=== PATIENT | male | born 1950 | race Caucasian/White ===

== ENCOUNTER → 2016-06-21 | Outpatient (CLI) | payer BC, MEDICARE ==
[2015-07-23 16:30] VITALS: BP 150/72
[~2016-06-21] MED LIST: ASPI81TA2 PO; CLIN300C86 PO; LISI10TA2 PO; METF500T9 PO; TAMS0.4C2 PO; TRAM-29 PO
--- NOTE | 2016-06-23 10:36 | CARD ---
APPROVED REPORT EXAM: Two-dimensional and M-mode echocardiogram with Doppler and color Doppler. Other Information Quality : Technically LimitedHR: 58bpm Rhythm : Bradycardia INDICATION Cardiac Disease: CAD 2D DIMENSIONS RVDd3.4 (2.9-3.5cm)Left Atrium(2D)3.5 (1.6-4.0cm) IVSd1.0 (0.7-1.1cm)Aortic Root(2D)2.3 (2.0-3.7cm) LVDd3.8 (3.9-5.9cm)LVOT Diameter2.0 (1.8-2.4cm) PWd1.0 (0.7-1.1cm)LVDs2.7 (2.5-4.0cm) FS (%) 28.2 %SV34.2 ml LVEF(%)55.2 (>50%) Aortic Valve AoV Peak Etienne.211.9cm/sAoV VTI46.2cm AO Peak GR.18.0mmHgLVOT Peak Etienne.105.3cm/s LVOT VTI 25.46cmAO Mean GR.10mmHg CHARLEY (VMAX)1.21mw3HDA (VTI)1.79cm2 AI P 1/2 Fcgx553gb Mitral Valve MV E Vuiwfjtg066.3cm/sMV DECEL BBPN129vn MV A Enyzbuug12.8cm/sMV E Mean Gr.2mmHg MV XSG68gqV/A Ratio1.4 MVA (PHT)3.68cm2 TDI E/Lateral E'14.0E/Medial E'16.9 Tricuspid Valve TR P. Fsatwfxb883ii/sTR Peak Gr.20mmHg LEFT VENTRICLE The left ventricle is normal size. There is normal left ventricular wall thickness. Left ventricle sy stolic function is normal. The Ejection Fraction is 50-55%. There is normal LV segmental wall motion. Septal motion consistent with prior CABG The left ventricular diastolic function and filling is norm al for age. There is no ventricular septal defect visualized. RIGHT VENTRICLE The right ventricle is normal size. The right ventricular systolic function is normal. ATRIA The left atrium size is normal. The right atrium size is normal. The interatrial septum is intact wit h no evidence for an atrial septal defect or patent foramen ovale as noted on 2-D or Doppler imaging. AORTIC VALVE The aortic valve is not well visualized. Suspect bioprosthetic aortic valve. Doppler and Color Flow r evealed mild aortic regurgitation. There is no significant aortic valvular stenosis. MITRAL VALVE The mitral valve leaflets are mildly calcified but opens well. There is no evidence of mitral valve p rolapse. There is no mitral valve stenosis. Doppler and Color Flow revealed no mitral valve regurgita tion noted. TRICUSPID VALVE The tricuspid valve is normal in structure. Doppler and Color Flow revealed trace tricuspid regurgita tion. There is no tricuspid valve stenosis. PULMONIC VALVE The pulmonic valve is not well visualized. Doppler and color-flow analysis was not performed. GREAT VESSELS The aortic root is not well visualized. Normal pulmonary venous flow (Doppler). The IVC was not visua lized. PERICARDIAL EFFUSION There is no pleural effusion. There is no evidence of significant pericardial effusion. Critical Notification Critical Value: No <Conclusion> Left ventricle systolic function is normal. The Ejection Fraction is 50-55%. There is normal LV segmental wall motion. Septal motion consistent with prior CABG The aortic valve is not well visualized. Suspect bioprosthetic aortic valve. Doppler and Color Flow revealed mild aortic regurgitation.
== END | disposition home or self-care (01) ==
LOC: ECHO 08:39
PROVIDERS: ATTEND Internal Medicine Cardiovascular Disease
DX: I25.10 Atherosclerotic heart disease of native coronary artery without angina pectoris (principal)
CPT/HCPCS: 93306

== ENCOUNTER → 2018-09-23 | Outpatient (CLI) | payer MEDICARE ==
[2015-07-23 16:30] VITALS: BP 150/72
[~2018-09-23] MED LIST changes: +ASPI-630 PO; -ASPI81TA2 PO; +CLIN300C8 PO; -CLIN300C86 PO; -TRAM-29 PO; +TRAM-48 PO
[2018-09-23] MEDS: PERFLUTREN PROTEIN-A MICROSPHR 0.22 MG/ML 3 ML VIAL. IV PRN ×2 (11:57→11:58)
--- NOTE | 2018-09-23 13:35 | CARD ---
MR#: [id number] Date of Study: 09/23/2018 Ordering Physician: JAJA AVILEZ, Referring Physician: JAJA AVILEZ, Tech: Ai Virk RDCS APPROVED REPORT EXAM: Two-dimensional and M-mode echocardiogram with Doppler and color Doppler. Other Information Quality : Technically Limited Technically limited study due to body habitus. INDICATION Aortic Valve Disease Dyspnea on Exertion Echo Enhancing Agent Agent/Amount Used: Optison 2mL Surgery/Intervention Status/Post Aortic Valve Replacement: Bioprosthetic Type: Porcine 2D DIMENSIONS RVDd2.8 (2.9-3.5cm)Left Atrium(2D)4.2 (1.6-4.0cm) IVSd1.3 (0.7-1.1cm)Aortic Root(2D)2.7 (2.0-3.7cm) LVDd4.8 (3.9-5.9cm)LVOT Diameter2.2 (1.8-2.4cm) PWd1.0 (0.7-1.1cm)LVDs4.0 (2.5-4.0cm) FS (%) 16.7 %SV38.2 ml LVEF(%)35.0 (>50%) Aortic Valve AoV Peak Etienne.212.7cm/sAoV VTI47.7cm AO Peak GR.18.1mmHgLVOT Peak Etienne.165.7cm/s LVOT VTI 35.61cmAO Mean GR.11mmHg CHARLEY (VMAX)2.77nn6AES (VTI)2.81cm2 AI P 1/2 Tbjp084ct Mitral Valve MV E Shfwhohe330.0cm/sMV DECEL DSCV816kv MV A Nmbwjntk933.3cm/sMV FVJ75ph E/A Ratio1.3MVA (PHT)3.98cm2 TDI E/Lateral E'27.5E/Medial E'18.2 Tricuspid Valve TR P. Udfzianz359tq/sRAP FQUQOYAL1inNg TR Peak Gr.99ckNmVIDY96jhFs Pulmonary Vein S1 Nbsakzjw40.5cm/sD2 Epxqxmvb52.5cm/s LEFT VENTRICLE The left ventricle is normal size. There is mild asymmetric septal hypertrophy. The left ventricular systolic function is normal and the ejection fraction is within normal range. The Ejection Fraction i s 55%. There is grossly normal wall motion. Technically very difficult images despite contrast use. T ransmitral Doppler flow pattern is Grade II-pseudonormal filling dynamics. RIGHT VENTRICLE Not well visualized. ATRIA The left atrium is mildly dilated. The right atrium is not well visualized. The interatrial septum is intact with no evidence for an atrial septal defect or patent foramen ovale as noted on 2-D or Doppl er imaging. AORTIC VALVE The aortic valve is not well visualized. Doppler and Color Flow revealed mild aortic regurgitation. C alculated aortic valve area is 2.8 cm2 with maximum pressure gradient of 18 mmHg and mean pressure gr adient of 11 mmHg. There is a bioprosthetic aortic valve prosthesis. MITRAL VALVE The mitral valve is calcified but opens well. Mitral annular calcification is mild. There is no evide nce of mitral valve prolapse. There is no mitral valve stenosis. Doppler and Color Flow revealed no m itral valve regurgitation noted. TRICUSPID VALVE Doppler and Color Flow revealed trace tricuspid regurgitation. The PA pressure was estimated at 28 mm Hg. There is no tricuspid valve stenosis. PULMONIC VALVE The pulmonic valve is not well visualized. Doppler and Color Flow revealed no pulmonic valvular regur gitation. There is no pulmonic valvular stenosis. GREAT VESSELS The aortic root is normal in size. The ascending aorta is not well seen. The IVC was not visualized. PERICARDIAL EFFUSION There is no evidence of significant pericardial effusion. Critical Notification Critical Value: No <Conclusion> The left ventricular systolic function is normal and the ejection fraction is within normal range. Th e Ejection Fraction is 55%. There is grossly normal wall motion. Technically very difficult images despite contrast use. Calculated aortic valve area is 2.8 cm2 with maximum pressure gradient of 18 mmHg and mean pressure g radient of 11 mmHg. Signed by : Jaja Avilez, Electronically Approved : 09/23/2018 13:34:30
== END | disposition home or self-care (01) ==
LOC: ECHO 10:50
PROVIDERS: ATTEND Internal Medicine Cardiovascular Disease
DX: I08.0 Rheumatic disorders of both mitral and aortic valves (principal)
CPT/HCPCS: C8929; Q9956

== ENCOUNTER 2018-10-01 08:13 | Outpatient (CLI) | payer MEDICARE ==
[~2018-10-01] VITALS: Ht 167.6 cm; Wt 111.1 kg
[2018-10-01] VITALS (14 sets, daily range): BP systolic 108–156; BP diastolic 55–70
[2018-10-01 08:46] LABS: HEMATOCRIT 41.7 % (39.0-53.0); HEMOGLOBIN 13.7 g/dL (13.0-17.5); RED BLOOD COUNT 4.92 x10^6/uL (4.30-5.70); RED CELL DISTRIBUTION WIDTH 14.7 % (11.5-14.5); WHITE BLOOD COUNT 7.4 x10^3/uL (4.0-11.0)
[2018-10-01] MEDS ORDERED: METO-239 PO (08:50)
[2018-10-01] MEDS ORDERED: LOSA100T14 PO (08:50)
[2018-10-01] MEDS ORDERED: GLIP2.5T4 PO (08:50)
[2018-10-01] MEDS ORDERED: ATOR20TA58 PO (08:50)
[2018-10-01] MEDS ORDERED: AMLO10TA8 PO (08:50)
[2018-10-01 08:51] LABS: GFR 74.1; POTASSIUM 4.3 mmol/L (3.5-5.1)
[2018-10-01 08:59] LABS: PROTHROMBIN TIME PATIENT 14.1 SEC (11.7-14.0)
[2018-10-01] MEDS ORDERED: IODIXANOL 320 MG/ML 100 ML VIAL. ONE (10:30)
[2018-10-01] MEDS ORDERED: MIDAZOLAM HCL/PF 2 MG/2 ML VIAL. ONE (10:33)
[2018-10-01] MEDS ORDERED: HEPARIN for IV BOLUS 10,000 UNIT/10 ML VIAL. ONE (10:33)
[2018-10-01] MEDS ORDERED: fentaNYL PF VIAL 100 MCG/2 ML VIAL ONE (10:33)
--- NOTE | 2018-10-01 10:40 | PDOC ---
MODERATE SEDATION ASSESSMENT RISKS/ALTERNATIVES Risks/Alternatives Risks and alternatives of this type of sedation and procedure discussed with: RISK/ALTERNATIVES: Patient H & P ON CHART H & P H & P on chart and reviewed for co-morbid conditions and appropriate labs. H&P ON CHART: Yes STATUS PREG STATUS ASSESSED: N/A MEDS/ALLERGIES REVIEWED Meds/Allergies Reviewed Medications and Allergies including time and route of recently administered narcotics and sedatives. MEDS/ALLERGIES REVIEWED: Yes ASA RATING ASA RATING: II AIRWAY ASSESSMENT Airway Assessment Airway patency, oral function limitations, presence of caps, crowns, dentures, partials, and ability to extend neck assessed. AIRWAY ASSESSMENT: Yes MALLAMPATI SCORE MALLAMPATI SCORE: II PRE-SEDATION ASSESSMENT PRE-SEDATION ASSESSMENT: Yes JAJA AVILEZ MD Oct 01, 2018 10:40
[2018-10-01] MEDS ORDERED: LIDOCAINE 1% Multi-Dose 20 ML VIAL. ONE (10:41)
[2018-10-01] MEDS ORDERED: LIDOCAINE 1% Multi-Dose 20 ML VIAL. INJ ONE (11:15)
[2018-10-01] MEDS ORDERED: MIDAZOLAM HCL/PF 2 MG/2 ML VIAL. IV ONE (11:15)
[2018-10-01] MEDS ORDERED: fentaNYL PF VIAL 100 MCG/2 ML VIAL IV ONE (11:15)
[2018-10-01] MEDS ORDERED: IODIXANOL 320 MG/ML 100 ML VIAL. IART ONE (11:15)
--- NOTE | 2018-10-01 11:34 | PDOC1 ---
History and Physical Visit Information Date of Admission: 10/01/2018 Source: Patient History of Present Illness History of Present Illness Pleasant 67 y.o man with pmhx as noted below presents with dyspnea. He has been having worsening exertional dyspnea and chest pressure similar to his presentation prior to his cabg and avr. Denies any syncope , orthopnea, PND or lower extremity edema. He reports some chest pressure which is relieved with rest. Cardiac Risk Factors Comments 1. Two-vessel coronary artery disease status post two-vessel CABG 2. Aortic stenosis status post aortic valve replacement 3. Morbid obesity 4. Distant anemia 5. Hypertension Current Medications Current Medications Current Medications Fentanyl Citrate (Fentanyl 2ml Vial) 100 mcg 1X ONCE IV Last administered on 10/01/18at 11:15; Start 10/01/18 at 11:15; Stop 10/01/18 at 11:18; Status DC Fentanyl Citrate (Fentanyl 2ml Vial) 100 mcg STK-MED ONCE .ROUTE ; Start 10/01/18 at 10:33; Stop 10/01/18 at 10:34; Status DC Heparin Sodium (Porcine) (Heparin Sodium) 10,000 unit STK-MED ONCE .ROUTE ; Start 10/01/18 at 10:33; Stop 10/01/18 at 10:34; Status DC Heparin Sodium/ Sodium Chloride 1,000 ml @ As Directed STK-MED ONCE .ROUTE ; Start 10/01/18 at 10:40; Stop 10/01/18 at 10:41; Status DC Heparin Sodium/ Sodium Chloride (HEPARIN for ARTERIAL LINE FLUSH) 1,000 unit 1X ONCE IART Last administered on 10/01/18at 11:15; Start 10/01/18 at 11:15; Stop 10/01/18 at 11:18; Status DC Iodixanol (Visipaque 320) 100 ml 1X ONCE IART Last administered on 10/01/18at 11:15; Start 10/01/18 at 11:15; Stop 10/01/18 at 11:18; Status DC Iodixanol (Visipaque 320) 100 ml STK-MED ONCE .ROUTE ; Start 10/01/18 at 10:30; Stop 10/01/18 at 10:31; Status DC Lidocaine HCl (Lidocaine 1% 20ml Vial) 20 ml 1X ONCE INJ Last administered on 10/01/18at 11:15; Start 6/25/19 at 11:15; Stop 10/01/18 at 11:18; Status DC Lidocaine HCl (Lidocaine 1% 20ml Vial) 20 ml STK-MED ONCE .ROUTE ; Start 10/01/18 at 10:41; Stop 10/01/18 at 10:42; Status DC Midazolam HCl (Versed) 2 mg 1X ONCE IV Last administered on 10/01/18at 11:15; Start 10/01/18 at 11:15; Stop 10/01/18 at 11:18; Status DC Midazolam HCl (Versed) 2 mg STK-MED ONCE .ROUTE ; Start 10/01/18 at 10:33; Stop 10/01/18 at 10:34; Status DC Allergies Allergies Allergies Coded Allergies Type Severity Reaction Last Updated Verified Penicillins Allergy Intermediate 06/08/15 Yes codeine Allergy Intermediate 06/08/15 Yes poliomyelitis vaccine,killed Allergy Intermediate 06/08/15 Yes Social History Comments No alcohol, tobacco or illicit drug use. He is retired. Family History Comments Noncontributory ROS Review of System Negative for 10 out of 14 systems reviewed unless otherwise mentioned above in history of present illness Physical Exam Comments The patient appeared well nourished and normally developed. Head exam is unremarkable. No scleral icterus or corneal arcus noted. Neck is without jugular venous distension, thyromegaly, or carotid bruits. Carotid upstrokes are brisk bilaterally. Lungs are clear to auscultation and percussion. Cardiac exam reveals the PMI to be normally sized and situated. Rhythm is regular. First and second heart sounds normal. No murmurs, rubs or gallops. Abdominal exam reveals normal bowel sounds, no masses, no organomegaly and no aortic enlargement. Extremities are nonedematous and both femoral and pedal pulses are normal. Msk: No traumua Neuro: No focal deficits Vitals VITALS Vital Signs Date Time Temp Pulse Resp B/P (MAP) Pulse Ox O2 Delivery O2 Flow Rate FiO2 10/01/18 11:15 18 10/01/18 09:27 97.8 59 122/66 (84) 92 Room Air 97.8 Labs Labs Laboratory Tests Test 10/01/18 08:37 White Blood Count 7.4 x10^3/uL (4.0-11.0) Red Blood Count 4.92 x10^6/uL (4.30-5.70) Hemoglobin 13.7 g/dL (13.0-17.5) Hematocrit 41.7 % (39.0-53.0) Mean Corpuscular Volume 85 fL (79-100) Mean Corpuscular Hemoglobin 28 pg (25-35) Mean Corpuscular Hemoglobin Concent 33 g/dL (31-37) Red Cell Distribution Width 14.7 % (11.5-14.5) Platelet Count 211 x10^3/uL (140-400) Prothrombin Time 14.1 SEC (11.7-14.0) Prothromb Time International Ratio 1.1 (0.8-1.1) Sodium Level 140 mmol/L (136-145) Potassium Level 4.3 mmol/L (3.5-5.1) Chloride Level 104 mmol/L (98-107) Carbon Dioxide Level 28 mmol/L (21-32) Anion Gap 8 (6-14) Blood Urea Nitrogen 22 mg/dL (8-26) Creatinine 1.0 mg/dL (0.7-1.3) Estimated GFR (Cockcroft-Gault) 74.1 Glucose Level 122 mg/dL (70-99) Calcium Level 9.0 mg/dL (8.5-10.1) Laboratory Tests Test 10/01/18 08:37 White Blood Count 7.4 x10^3/uL (4.0-11.0) Red Blood Count 4.92 x10^6/uL (4.30-5.70) Hemoglobin 13.7 g/dL (13.0-17.5) Hematocrit 41.7 % (39.0-53.0) Mean Corpuscular Volume 85 fL (79-100) Mean Corpuscular Hemoglobin 28 pg (25-35) Mean Corpuscular Hemoglobin Concent 33 g/dL (31-37) Red Cell Distribution Width 14.7 % (11.5-14.5) Platelet Count 211 x10^3/uL (140-400) Prothrombin Time 14.1 SEC (11.7-14.0) Prothromb Time International Ratio 1.1 (0.8-1.1) Sodium Level 140 mmol/L (136-145) Potassium Level 4.3 mmol/L (3.5-5.1) Chloride Level 104 mmol/L (98-107) Carbon Dioxide Level 28 mmol/L (21-32) Anion Gap 8 (6-14) Blood Urea Nitrogen 22 mg/dL (8-26) Creatinine 1.0 mg/dL (0.7-1.3) Estimated GFR (Cockcroft-Gault) 74.1 Glucose Level 122 mg/dL (70-99) Calcium Level 9.0 mg/dL (8.5-10.1) ECG EKG: NSR VTE Prophylaxis Ordered VTE Prophylaxis Devices: Yes VTE Pharmacological Prophylaxi: Yes Assessment/Plan Assessment/Plan 1. Exertional dyspnea and a 67-year-old man with multiple medical problems as noted above plan for diagnostic right and left heart catheterization in light of his echo and stress test findings JAJA AVILEZ MD Oct 01, 2018 11:34
[2018-10-01] MEDS ORDERED: 0.9 % SODIUM CHLORIDE 10 ML DISP.SYRIN. IV PRN (11:45)
[2018-10-01] MEDS ORDERED: NITROGLYCERIN SUBLINGUAL 0.4 MG BOTTLE OF 25. SL PRN (11:45)
--- NOTE | 2018-10-01 11:59 | CARD ---
MR#: [id number] Date of Study: 10/01/2018 Ordering Physician: JAJA ROMEO, Referring Physician: JAJA ROMEO, Tech: RT Isabella (R) APPROVED REPORT Technologist: Deonte Mast RT (R) Nurse: Mirna Hubbard RN Procedure(s) performed: Sedation Time: 54 Minutes Dose: 90 Gycm2 Fluoro Time: 7.3 Contrast: 88 mL RHC, LHC, Coronary angiography HISTORY The patient is a 67 year-old male with a history of : coronary artery disease, hypertension, dyslipid emia. INDICATION The indication(s) include : unstable angina , dyspnea, valvular heart disease. [facility] Clinical Frailty Scale [facility] Clinical Frailty Scale: Moderately Frail Heart Failure Heart Failure: Yes If Yes, Newly Diagnosed: No If Yes, HF Type: Systolic If Yes, NYHA Class: Class II CASE TECHNIQUE During this case, Fluoroscopy and low osmolar contrast were used for imaging. PROCEDURE NARRATIVE The patient was brought electively to the cardiac catheterization lab. A timeout was performed confi rming the patient's name, date of , procedure, and site of procedure. All necessary personnel w ere wearing the appropriate protective equipment and radiation monitor devices. After explaining the risks and benefits of the procedure and alternatives, informed consent was obtained. (See nursing no rebeka for medications administered). The right groin was sterilely prepped and draped in the usual fas hion. The right groin was infiltrated with 20 mL of 2% lidocaine for subcutaneous anesthesia. A 6 F sheath was inserted into the right femoral artery without difficulty via the modified seldinger techn ique with an 18G needle and a J-tipped guidewire. Next, an 8Fr sheath was inserted in the right commo n femoral vein in similar fashion without difficulty. A PA catheter was then advanced through the right heart chambers, pressures and saturations were obta ined. Subsequently, right and left coronary angiography was performed using standard JR4 and JL4 diag nostic catheters. Left ventricular end diastolic pressure was obtained with a pigtail catheter and p ullback was performed. Bypass angiography was performed with a JR4 catheter. HEMODYNAMICS: LVEDP 20 mm Hg AO: 110/79 *No gradient on LV to aortic pullback. PCWP: 26/28/22 mm Hg PA: 51/17/33 RV: 46/15/22 RA: 20/23/16 mm Hg Everardo: 5.5 L/min Tco: 6.2 L/min PA saturation: 69% FA saturation: 92% LEFT VENTRICULOGRAM: Deferred due to known normal EF by echo. CORONARY ANGIOGRAPHY: LM is a large caliber vessel with normal angiographic appearance. LAD is a large caliber vessel with a mid 70% stenosis. The mid to distal vessel is seen to fill anteg rade and via competitive flow from a LUO graft. D1/D2 are small caliber vessels with normal angiographic apeparance. LCx is a moderate caliber non-dominant vessel with a mid 50% stenosis. LPL1 is a moderate caliber vessel with normal angiographic appearance. RCA is a large caliber dominant vessel with a long proximal to distal 60% stenosis and negative remod eling. RPDA is a moderate caliber vessel with normal angiographic appearance. BYPASS ANGIOGRAPHY: LUO to LAD - Not well engaged due to subclavian tortuosity but no evidence of significant disease on limited imaging. SVG to RCA - Widely patent. Conclusion 1. Acute on chronic diastolic heart failure with biventricular pressure overload. 2. Moderate pulmonary hypertension. 3. Three vessel coronary disease. 4. 2/2 grafts patent. Recommendations Aggressive Medical Therapy Signed by : Jaja Romeo, Electronically Approved : 10/01/2018 11:58:43
--- NOTE | 2018-10-01 14:44 | NUR ---
Right groin site checked and oozing noted from venous site. Old dressing removed and arterial site also had fresh blood. Site cleaned and new dressings applied. Patient complains of neck discomfort but explained that we need him to remain flat because his site bled, will continue to monitor.
[2018-10-01] MEDS ORDERED: FURO-68 PO (15:39)
--- NOTE | 2018-10-01 16:19 | NUR ---
Discharge Note: ERICA BOWLING Discharge instructions and discharge home medications reviewed with Patient and a copy given. All questions have been answered and understanding verbalized. The following instructions and handouts were given: groin site care and moderate sedation Discontinued lines and drains: Peripheral IV intact. Patient discharged to Home or Self Care withFamily Membervia Wheelchair
== END 2018-10-01 16:15 | disposition home or self-care (01) ==
LOC: CCL 08:13
PROVIDERS: ATTEND Internal Medicine Cardiovascular Disease
DX: I25.110 Atherosclerotic heart disease of native coronary artery with unstable angina pectoris (principal); I11.0 Hypertensive heart disease with heart failure; I50.33 Acute on chronic diastolic (congestive) heart failure; Z79.82 Long term (current) use of aspirin; D64.9 Anemia, unspecified; Z95.1 Presence of aortocoronary bypass graft; Z88.5 Allergy status to narcotic agent; Z88.0 Allergy status to penicillin; Z88.8 Allergy status to other drugs, medicaments and biological substances
CPT/HCPCS: 36415; 80048; 85027; 85610; 93453; 99152; 99153; C1760; C1769; C1773; C1892; J1644; J2250; J3010; Q9967; G0269; C1771

== ENCOUNTER → 2019-02-28 | Outpatient (CLI) | payer MEDICARE ==
[2018-10-01 15:30] VITALS: BP 130/66
[~2019-02-28] MED LIST changes: +AMLO10TA8 PO; +ATOR20TA58 PO; +FURO-68 PO; +GLIP2.5T4 PO; +LOSA100T14 PO; +METF500T11 PO; -METF500T9 PO; +METO-239 PO
--- NOTE | 2019-02-28 10:53 | KCIC ---
EXAMINATION: Magnetic resonance imaging (MRI) of the lumbar spine without contrast 02/28/2019 9:30 AM HISTORY: Low back pain. TECHNIQUE: Multiplanar multi-weighted MRI of the lumbar spine was performed without intravenous contrast using the standard lumbar spine protocol. Contrast information: None administered. COMPARISON: None available. FINDINGS: The alignment of the lumbar spine is normal. There is congenital narrowing of the spinal canal secondary to shortened pedicles. Large anterior marginal osteophytes are identified at L1-L2 and L2-L3. Vertebral bodies demonstrate normal signal intensity on all sequences. There are no compression fractures. The conus medullaris terminates at the level of L1. The distal spinal cord signal intensity is normal. Mild disc height loss is noted at L1-L2 and L2-L3 with disc desiccation noted at all levels of the lumbar spine. Limited views of the abdomen and pelvis show no soft tissue abnormality. The aorta is normal. T12-L1: There is mild disc bulge with left central disc protrusion. Mild facet arthropathy. No neuroforaminal stenosis. Mild spinal canal stenosis. L1-L2: There is a mild circumferential disc bulge with left foraminal disc protrusion. Moderate left and moderate facet arthropathy. Moderate to severe left neuroforaminal stenosis and mild left lateral recess stenosis. L2-L3: There is mild circumferential disc bulge with left foraminal disc protrusion. There is moderate left and mild right facet arthropathy. There is moderate left neuroforaminal stenosis. Mild spinal canal stenosis, exacerbated by congenital narrowing of the spinal canal. L3-L4: There is a mild to moderate disc bulge. There is moderate facet arthropathy ligamentum flavum infolding. Mild bilateral neuroforaminal stenosis. Mild spinal canal stenosis. L4-L5: There is a moderate disc bulge. There is moderate facet arthropathy with ligamentum flavum infolding. There is moderate right and moderate to severe left neuroforaminal stenosis. Mild to moderate spinal canal stenosis. L5-S1: There is mild circumferential disc bulge. Moderate to severe facet arthropathy. Moderate right neuroforaminal stenosis. No significant spinal canal stenosis. IMPRESSION: Mild degenerative changes of the lumbar spine as described in detail above. 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 Electronically signed by: Yolande Kaye MD (02/28/2019 10:49 AM) [facility]
== END | disposition home or self-care (01) ==
LOC: KCIC MRI 09:05
PROVIDERS: ATTEND Family Medicine
DX: M47.816 Spondylosis without myelopathy or radiculopathy, lumbar region (principal); M48.05 Spinal stenosis, thoracolumbar region; M51.24 Other intervertebral disc displacement, thoracic region; M51.27 Other intervertebral disc displacement, lumbosacral region; M46.84 Other specified inflammatory spondylopathies, thoracic region; M46.87 Other specified inflammatory spondylopathies, lumbosacral region; M25.78 Osteophyte, vertebrae; G89.29 Other chronic pain
CPT/HCPCS: 72148

== ENCOUNTER → 2019-08-11 | Outpatient (CLI) | payer MEDICARE ==
[2018-10-01 15:30] VITALS: BP 130/66
[~2019-08-11] MED LIST changes: +PERFLUTREN PROTEIN-A MICROSPHR 0.22 MG/ML 3 ML VIAL. IV ONE
[2019-08-11 12:57] LABS: CALCIUM 9.1 mg/dL (8.5-10.1); GFR 73.9; POTASSIUM 4.2 mmol/L (3.5-5.1)
--- NOTE | 2019-08-11 13:35 | CARD ---
MR#: [id number] Date of Study: 08/11/2019 Ordering Physician: JAJA AVILEZ, Referring Physician: JAJA AVILEZ, Tech: Ai Virk DIOR APPROVED REPORT EXAM: Two-dimensional and M-mode echocardiogram with Doppler and color Doppler. Other Information Quality : Good INDICATION Cardiac Disease: CAD Surgery/Intervention Status/Post Aortic Valve Replacement: Bioprosthetic Date: 2015 CABG: Date: 2015 2D DIMENSIONS RVDd2.6 (2.9-3.5cm)Left Atrium(2D)3.7 (1.6-4.0cm) IVSd0.9 (0.7-1.1cm)Aortic Root(2D)2.0 (2.0-3.7cm) LVDd5.3 (3.9-5.9cm)LVOT Diameter2.1 (1.8-2.4cm) PWd0.9 (0.7-1.1cm)LVDs3.5 (2.5-4.0cm) FS (%) 25.0 % Aortic Valve AoV Peak Etienne.245.0cm/sAoV VTI58.0cm AO Peak GR.24.0mmHgLVOT Peak Etienne.120.0cm/s LVOT VTI 30.00cmAO Mean GR.14mmHg CHARLEY (VTI)1.70cm2 Tricuspid Valve TR P. Xwdycuge498ri/sRAP PQSMKWIB0ytHb TR Peak Gr.91ewArULBO57rcNc LEFT VENTRICLE The left ventricle is normal size. There is normal left ventricular wall thickness. Left ventricle sy stolic function is normal. The Ejection Fraction is 50-55%. Septal motion consistent with post-operat mera state. RIGHT VENTRICLE The right ventricle is normal size. The right ventricular systolic function is normal. ATRIA The left atrium size is normal. The right atrium size is normal. The interatrial septum is intact wit h no evidence for an atrial septal defect or patent foramen ovale as noted on 2-D or Doppler imaging. AORTIC VALVE Doppler and Color Flow revealed mild aortic regurgitation. Calculated aortic valve area is 1.7 cm2 wi th maximum pressure gradient of 24 mmHg and mean pressure gradient of 14 mmHg. There is a bioprosthet ic (Bovine) aortic valve prosthesis. The prosthetic aortic valve is not well visualized. MITRAL VALVE The mitral valve is normal in structure and function. There is no evidence of mitral valve prolapse. There is no mitral valve stenosis. Doppler and Color Flow revealed trace mitral valve regurgitation. TRICUSPID VALVE The tricuspid valve is normal in structure and function. Doppler and Color Flow revealed trace tricus pid regurgitation. The PA pressure was estimated at 28 mmHg. There is no tricuspid valve stenosis. PULMONIC VALVE The pulmonic valve is not well visualized. Doppler and Color Flow revealed no pulmonic valvular regur gitation. There is no pulmonic valvular stenosis. GREAT VESSELS The aortic root is normal in size. The ascending aorta is not well seen. The IVC was not visualized. PERICARDIAL EFFUSION There is no evidence of significant pericardial effusion. Critical Notification Critical Value: No <Conclusion> The left ventricle is normal size. Left ventricle systolic function is normal. The Ejection Fraction is 50-55%. There is a bioprosthetic (Bovine) aortic valve prosthesis. The prosthetic aortic valve is not well visualized. Doppler and Color Flow revealed mild aortic regurgitation. Calculated aortic valve area is 1.7 cm2 with maximum pressure gradient of 24 mmHg and mean pressure g radient of 14 mmHg. Doppler and Color Flow revealed trace mitral valve regurgitation. Doppler and Color Flow revealed trace tricuspid regurgitation. The PA pressure was estimated at 28 mmHg. Signed by : Ty Galvin MD Electronically Approved : 08/11/2019 13:35:02
--- NOTE | 2019-08-12 10:03 | RAD ---
MR#: [id number] Date of Study: 08/11/2019 Ordering Physician: JAJA AVILEZ, Referring Physician: JAJA AVILEZ, Tech: Bright Amaral MBA, RDMS, RVT, RDCS, RTR APPROVED REPORT Patient Location : OUT-PATIENT Indications VENOUS INSUFFICIENCY Findings Grayscale images of the bilateral saphenofemoral junctions are grossly unremarkable. The right great saphenous vein measures 6 mm and does not reflux. The left great saphenous vein has been previously stripped for bypass surgery. Bilateral lesser saphenous veins did not show any evidence of reflux. Critical Notification Critical Value: No <Conclusion> 1. No significant lower extremity venous reflux. Signed by : Jaja Avilez, Electronically Approved : 08/12/2019 10:03:38
== END | disposition home or self-care (01) ==
LOC: ECHO 11:04
PROVIDERS: ATTEND Internal Medicine Cardiovascular Disease
DX: I35.1 Nonrheumatic aortic (valve) insufficiency (principal); I87.2 Venous insufficiency (chronic) (peripheral); I25.10 Atherosclerotic heart disease of native coronary artery without angina pectoris; Z95.2 Presence of prosthetic heart valve
CPT/HCPCS: 36415; 80048; 83880; 93306; 93970

== ENCOUNTER → 2019-11-03 | Outpatient (CLI) | payer MEDICARE ==
[2018-10-01 15:30] VITALS: BP 130/66
[~2019-11-03] MED LIST changes: +METF-658 PO; -METF500T11 PO; -PERFLUTREN PROTEIN-A MICROSPHR 0.22 MG/ML 3 ML VIAL. IV ONE
--- NOTE | 2019-11-03 17:08 | RAD ---
MR#: [id number] Date of Study: 11/03/2019 Ordering Physician: JAJA AVILEZ, Referring Physician: JAJA AVILEZ, Tech: Bright Amaral MBA, RDMS, RVT, RDCS, RTR APPROVED REPORT Patient Location: OUT-PATIENT Indications PAD VELOCITY AND DOPPLER WAVEFORM ANALYSIS RIGHT cm/secWaveformSeverity LEFT cm/secWaveform Severity dCFA 207.0TriphasicdCFA 179.0Triphasic Prof Fem Art. 159.0BiphasicProf Fem Art. 96.0Biphasic Fem Art Prox. 158.0TriphasicFem Art Prox. 167.0Triphasic Fem Art Mid. 171.0TriphasicFem Art Mid. 167.0Triphasic Fem Art Dist. 220.0TriphasicFem Art Dist. 188.0Triphasic Pop Art(Fossa) 149.0TriphasicPop Art(AK) 128.0Triphasic SUPERVISOR OF COMMUNICATIONS Prox. 141.0TriphasicPTA Prox. 113.0Triphasic SUPERVISOR OF COMMUNICATIONS Dist. 122.0TriphasicPTA Dist. 130.0Triphasic Per Art Mid. Per Art Mid. 130.0Triphasic LAURIE Prox. 115.0BiphasicATA Prox. 87.0Biphasic DPA 181MonophasicDPA 113Biphasic Findings Grayscale images of the bilateral lower extremity arterial vessels demonstrate mild to moderate diffu se atherosclerosis without any high-grade stenosis. Spectral waveforms and color Doppler are grossly within normal limits with mildly elevated velocities in the bilateral superficial femoral arteries in the mid to distal segment but no focal high-grade s tenosis is identified. There is two-vessel runoff on the right leg and three-vessel runoff on the le ft leg. Critical Notification Critical Value: No <Conclusion> 1. No significant lower extremity arterial disease noted. Signed by : Jaja Avilez, Electronically Approved : 11/03/2019 17:07:54
--- NOTE | 2019-11-03 17:17 | RAD ---
MR#: [id number] Date of Study: 11/03/2019 Ordering Physician: JAJA AVILEZ, Referring Physician: JAJA AVILEZ, Tech: Bright Amaral MBA, RDMS, RVT, RDCS, RTR APPROVED REPORT Patient Location: OUT-PATIENT Indications PAD Findings Right arm 120, right ankle PT 141, DP 135, index 1.2 Left arm 117, left ankle PT 138, DP 134, index 1.2 Critical Notification Critical Value: No <Conclusion> 1. Normal JENARO bilaterally Signed by : Jaja Avilez, Electronically Approved : 11/03/2019 17:17:01
--- NOTE | 2019-11-11 15:24 | RAD ---
MR#: [id number] Date of Study: 11/03/2019 Ordering Physician: JAJA AVILEZ, Referring Physician: JAJA AVILEZ, Tech: Bright Amaral MBA, RDMS, RVT, RDCS, RTR APPROVED REPORT Patient Location: OUT-PATIENT Laterality:Bilateral Indications PAD Doppler Spectral Velocity Analysis Right Left pCCA 90/112 cm/spCCA 112/17 cm/s mCCA 104/21 cm/smCCA 112/21 cm/s dCCA 112/13 cm/sdCCA 104/16 cm/s Bulb 131/16 cm/sBulb 108/19 cm/s ECA 241/ cm/sECA 341/ cm/s pICA 133/24 cm/spICA 267/54 cm/s Margo 125/25 cm/smICA 212/49 cm/s dICA 110/28 cm/sdICA 184/37 cm/s Vert. 39/ cm/sVert. 74/ cm/s Subcl. 108/ cm/sSubcl. 102/ cm/s ICA/CCA 1.19ICA/CCA 2.38 Findings Gee scale images demonstrate moderate bilateral plaque, mostly at the carotid bulbs. Based on spectral waveforms, there is moderate (50-69%) stenosis on the MUMTAZ, > 70% stenosis in the r ight ECA and normal ICA/CCA ratios. On the left side, there is a > 70% stenosis involving the ICA and ECA. Right vertebral artery not well visualized. Normal antegrade left vertebral velocities. Normal bilateral subclavian velocities. Critical Notification Critical Value: No <Conclusion> 1. Moderate to severe bilateral ICA disease. Signed by : Jaja Avilez, Electronically Approved : 11/11/2019 15:24:36
== END | disposition home or self-care (01) ==
LOC: US 11:29
PROVIDERS: ATTEND Internal Medicine Cardiovascular Disease
DX: I65.23 Occlusion and stenosis of bilateral carotid arteries (principal); I70.203 Unspecified atherosclerosis of native arteries of extremities, bilateral legs
CPT/HCPCS: 93880; 93922; 93925

== ENCOUNTER → 2020-02-17 | Outpatient (CLI) | payer MEDICARE ==
[2018-10-01 15:30] VITALS: BP 130/66
[~2020-02-17] MED LIST changes: +AMLO-187 PO; -AMLO10TA8 PO; +TRAM50TA PO
== END ==
LOC: LAB 09:49
PROVIDERS: ATTEND Surgery Vascular Surgery
DX: Z01.812 Encounter for preprocedural laboratory examination (principal); I65.29 Occlusion and stenosis of unspecified carotid artery; Z20.828 Contact with and (suspected) exposure to other viral communicable diseases
CPT/HCPCS: U0003

== ENCOUNTER → 2020-07-14 | Outpatient (CLI) | payer MEDICARE ==
[2020-05-24 14:50] VITALS: BP 140/64
[~2020-07-14] MED LIST changes: -CLIN300C8 PO; +CLIN300C9 PO; +HYDR-2761 PO; +LISI10TA16 PO; -LISI10TA2 PO; +PERFLUTREN PROTEIN-A MICROSPHR 0.22 MG/ML 3 ML VIAL. IV ONE
--- NOTE | 2020-07-15 09:29 | CARD ---
MR#: [id number] Date of Study: 07/14/2020 Ordering Physician: JAJA AVILEZ, Referring Physician: JAJA AVILEZ, Tech: Annmarie David, [facility] APPROVED REPORT EXAM: Two-dimensional and M-mode echocardiogram with Doppler and color Doppler. Other Information Quality : FairHR: 71bpm Technically limited study due to body habitus. INDICATION Cardiac Disease: CAD Surgery/Intervention Status/Post Aortic Valve Replacement: CABG: Date: 2015 RISK FACTORS Hypertension 2D DIMENSIONS Left Atrium(2D)3.7 (1.6-4.0cm)IVSd1.0 (0.7-1.1cm) Aortic Root(2D)2.0 (2.0-3.7cm)LVDd5.6 (3.9-5.9cm) LVOT Diameter1.9 (1.8-2.4cm)PWd1.0 (0.7-1.1cm) LVDs3.6 (2.5-4.0cm)FS (%) 35.3 % SV97.0 ml Aortic Valve AoV Peak Etienne.254.4cm/sAoV VTI54.4cm AO Peak GR.25.9mmHgLVOT Peak Etienne.180.1cm/s LVOT VTI 45.81cmAO Mean GR.14mmHg CHARLEY (VMAX)1.07tj1IZF (VTI)2.47cm2 AI P 1/2 Dikt049qh Mitral Valve MV E Ibnyfgfg602.4cm/sMV DECEL XELG608gg MV A Lfqkrgbw31.5cm/sMV UJW30js E/A Ratio1.3MVA (PHT)3.81cm2 TDI E/Lateral E'12.0E/Medial E'16.2 Pulmonary Valve PV Peak Adjhlctn652.3cm/sPV Peak Grad.5mmHg Tricuspid Valve TR P. Diesvvlv599za/sRAP WNKXORDA5jcKn TR Peak Gr.09fiWqYGFC31ggEa Pulmonary Vein S1 Zjjrjlmu36.0cm/sD2 Fitfwlrv88.0cm/s PVa [id number] LEFT VENTRICLE The left ventricle is normal size. There is normal left ventricular wall thickness. The left ventricu lar systolic function is normal and the ejection fraction is within normal range. The Ejection Fracti on is 50-55%. Septal motion consistent with post-operative state. Transmitral Doppler flow pattern is Grade II-pseudonormal filling dynamics. RIGHT VENTRICLE The right ventricle is mildly dilated. There is normal right ventricular wall thickness. The right ve ntricular systolic function is normal. ATRIA The left atrium size is normal. The right atrium is mildly dilated. The interatrial septum is intact with no evidence for an atrial septal defect or patent foramen ovale as noted on 2-D or Doppler imagi ng. AORTIC VALVE Doppler and Color Flow revealed trace aortic regurgitation. There is no significant aortic valvular s tenosis. Calculated aortic valve area is 2.46 cm2 with maximum pressure gradient of 38 mmHg and mean pressure gradient of 19 mmHg. The prosthetic aortic valve appears normal. MITRAL VALVE The mitral valve is normal in structure and function. There is no evidence of mitral valve prolapse. There is no mitral valve stenosis. Doppler and Color-flow revealed trace mitral regurgitation. TRICUSPID VALVE The tricuspid valve is not well visualized. Doppler and Color Flow revealed trace tricuspid regurgita tion with an estimated PAP of 30 mmHg. There is no tricuspid valve stenosis. PULMONIC VALVE The pulmonic valve is not well visualized. Doppler and Color Flow revealed no pulmonic valvular regur gitation. GREAT VESSELS The aortic root is normal in size. The IVC was not visualized. PERICARDIAL EFFUSION There is no evidence of significant pericardial effusion. Critical Notification Critical Value: No <Conclusion> The left ventricle is normal size. The left ventricular systolic function is normal and the ejection fraction is within normal range. The Ejection Fraction is 50-55%. Septal motion consistent with post-operative state. Doppler and Color Flow revealed trace aortic regurgitation. There is no significant aortic valvular stenosis. Doppler and Color-flow revealed trace mitral regurgitation. Doppler and Color Flow revealed trace tricuspid regurgitation with an estimated PAP of 30 mmHg. Signed by : Ty Galvin MD Electronically Approved : 07/15/2020 09:29:03
== END ==
LOC: CARD 12:44
PROVIDERS: ATTEND Internal Medicine Cardiovascular Disease
DX: I25.10 Atherosclerotic heart disease of native coronary artery without angina pectoris (principal); Z95.2 Presence of prosthetic heart valve
CPT/HCPCS: C8929; Q9956

== ENCOUNTER 2020-09-15 12:35 | Inpatient (IN) | payer MEDICARE ==
[~2020-09-15] VITALS: Ht 167.6 cm; Wt 98.8 kg
[~2020-09-15 12:35] MED LIST changes: -PERFLUTREN PROTEIN-A MICROSPHR 0.22 MG/ML 3 ML VIAL. IV ONE
--- NOTE | 2020-09-15 12:52 | PHYS DOC ---
Past Medical History Past Medical History: No Pertinent History, High Cholesterol, Hypertension Past Surgical History: Coronary Bypass Surgery, Other Additional Past Surgical Histo: AORTIC VALVE REPLACEMENT,KIDNEY TRANSPLANT X 2 Smoking Status: Never Smoker Alcohol Use: None Drug Use: None General Adult EDM: Chief Complaint: HIP PAIN HPI: HPI: 69-year-old male who fell yesterday twice. He primarily complains of right hip pain. He has not been able to place weight on it since his second fall. He did hit his head. He denies being on blood thinners. He did not pass out. He also has neck pain associated with his head injury. The pain is a sharp shooting moderate pain without alleviating factors. He denies any chest belly or thoracic or lumbar back pain. Review of systems is negative for loss of conscious. Positive for mild headache. Negative for focal neurologic deficits. Negative for numbness weakness or tingling in his right lower extremity. All other review of systems is negative. Heart Score: C/O Chest Pain: No Risk Factors: Risk Factors: DM, Current or recent (<one month) smoker, HTN, HLP, family history of CAD, obesity. Risk Scores: Score 0 - 3: 2.5% MACE over next 6 weeks - Discharge Home Score 4 - 6: 20.3% MACE over next 6 weeks - Admit for Clinical Observation Score 7 - 10: 72.7% MACE over next 6 weeks - Early Invasive Strategies Allergies: Allergies: Allergies Coded Allergies Type Severity Reaction Last Updated Verified codeine Allergy Severe Anaphylaxis 05/17/20 Yes Penicillins Allergy Intermediate Rash 05/17/20 Yes poliomyelitis vaccine,killed Allergy Intermediate Hives 05/17/20 Yes Physical Exam: PE: Constitutional: Well developed, well nourished, no acute distress, non-toxic appearance. [] HENT: Normocephalic, atraumatic, bilateral external ears normal, oropharynx moist, no oral exudates, nose normal. [] No abrasions lacerations or ecchymosis to the head or neck. Mild tenderness in the cervical spine without abrasions lacerations or ecchymosis. No step-offs. Eyes: PERRLA, EOMI, conjunctiva normal, no discharge. [] Neck: Normal range of motion, no tenderness, supple, no stridor. [] Cardiovascular:Heart rate regular rhythm, no murmur [] Lungs & Thorax: Bilateral breath sounds clear to auscultation [] no crepitus to palpation. Abdomen: Bowel sounds normal, soft, no tenderness, no masses, no pulsatile masses. [] Skin: Warm, dry, no erythema, no rash. [] Back: No tenderness, no CVA tenderness. [] Extremities: The patient's right lower extremity has tenderness in the right hip with pain with passive range of motion. The right knee and ankle are nontender with normal range of motion. Palpable pulse with 2-second cap refill and normal motor and sensory function of the right foot. The left upper extremity right upper extremity and left lower extremity are nontender with normal range of motion of the joints neurovascular intact and without any acute traumatic injuries. Neurologic: Alert and oriented X 3, normal motor function, normal sensory function, no focal deficits noted. [] Psychologic: Affect normal, judgement normal, mood normal. [] EKG: EKG: [] EKG shows sinus rhythm with a regular rate. ST segments congruent. Nonspecific T wave inversions in the high lateral leads. Nonspecific findings. Does not meet STEMI criteria. Radiology/Procedures: Radiology/Procedures: [] Course & Med Decision Making: Course & Med Decision Making Pertinent Labs and Imaging studies reviewed. (See chart for details) 69 YO M presented to the ED the with a fall. head and neck ct neg pelvis xray neg. traumatic work-up unremarkable. CBC and CMP unremarkable. Patient is still unable to ambulate and lives at home alone so we will admit for PT OT and possible MRI of the hip and possible orthopedic surgery consultation if he is still unable to bear weight. Mikayla Disclaimer: Mikayla Disclaimer: This electronic medical record was generated, in whole or in part, using a voice recognition dictation system. Departure Departure Impression: Primary Impression: Right hip pain Disposition: ADMITTED INPATIENT Admitting Physician: HIMS Condition: STABLE Referrals: WARD CHAVARRIA MD (PCP) LUISA SOOD MD Sep 15, 2020 12:52
--- NOTE | 2020-09-15 13:28 | RAD ---
EXAM: XR BILATERAL HIP (WITH OR WITHOUT PELVIS) 2 VIEWS_RIGHT 09/15/2020 12:55 PM CLINICAL INDICATION: Right hip pain COMPARISON: None TECHNIQUE: AP view the pelvis and AP and frog-leg lateral view of the right hip FINDINGS: No acute fracture. Alignment is normal. Mild degenerative changes of the right hip without significant joint space narrowing. Sacroiliac joints are not well evaluated. The pubic symphysis is normal. There is hernia mesh material and surgical clips in the pelvis. IMPRESSION: No acute osseous abnormality. Electronically signed by: Roberta Hodge MD (09/15/2020 1:26 PM) [id number]
--- NOTE | 2020-09-15 13:31 | RAD ---
INDICATION: Reason: HYPOXIA / Spl. Instructions: / History: COMPARISON: June 08, 2015 FINDINGS: Single view of chest obtained. Cardiac silhouette is enlarged with poststernotomy changes. Probable calcified granulomas. No definite new region of consolidation. IMPRESSION: * Repeat demonstration of enlargement of the cardiomediastinal silhouette without focal consolidatio n or edema. Electronically signed by: Tree Almonte MD (09/15/2020 1:29 PM) [id number]
[2020-09-15 14:18] LABS: BASO # 0.1 x10^3/uL (0.0-0.2); BASO % 1 % (0-3); EOS # 0.2 x10^3/uL (0.0-0.7); EOS % 2 % (0-3); HEMATOCRIT 42.5 % (39.0-53.0); HEMOGLOBIN 14.2 g/dL (13.0-17.5); LYMPH # 1.5 x10^3/uL (1.0-4.8); LYMPH % 15 % (24-48); MEAN CORPUSCULAR HEMOGLOBIN 28 pg (25-35); MEAN CORPUSCULAR HGB CONC 34 g/dL (31-37); MEAN CORPUSCULAR VOLUME 83 fL (79-100); MONO # 0.6 x10^3/uL (0.0-1.1); MONO % 6 % (0-9); NEUT # 7.7 x10^3/uL (1.8-7.7); NEUT % 77 % (31-73); PLATELET COUNT 245 x10^3/uL (140-400); RED BLOOD COUNT 5.14 x10^6/uL (4.30-5.70); RED CELL DISTRIBUTION WIDTH 15.6 % (11.5-14.5); WHITE BLOOD COUNT 10.1 x10^3/uL (4.0-11.0)
[2020-09-15 14:32] LABS: CALCIUM 9.3 mg/dL (8.5-10.1); GFR 73.7; POTASSIUM 4.2 mmol/L (3.5-5.1)
[2020-09-15 14:37] LABS: ALBUMIN 3.8 g/dL (3.4-5.0); TOTAL BILIRUBIN 0.9 mg/dL (0.2-1.0); TOTAL PROTEIN 7.6 g/dL (6.4-8.2)
--- NOTE | 2020-09-15 15:29 | RAD ---
EXAM: 1. CT head and cervical spine without contrast 2. CT pelvis without contrast INDICATION: Head trauma, right hip pain COMPARISON: TECHNIQUE: Axial CT imaging through the head and cervical spine without intravenous contrast. Axial C T images through the pelvis without contrast. Sagittal and coronal reformats were obtained. One or more of the following individualized dose reduction techniques were utilized for this examinat ion: 1. Automated exposure control 2. Adjustment of the mA and/or kV according to patient size 3. Use of iterative reconstruction technique. FINDINGS: CT head: The ventricles and sulci are mildly enlarged. Mild periventricular and scattered deep white matter hy poattenuation. No intracranial hemorrhage, acute infarct, or mass lesion. The skull is intact.. Paran bernadette sinuses and mastoid air cells are clear. Globes and orbits are intact. CT cervical spine: No acute fracture. Alignment is normal. There is extensive partially calcified soft tissue about the dens resulting in severe canal narrowing at C2 along the upper portion of the dens. There is bulky an terior ossification along the cervical from at least C4-C7.There is mild disc space narrowing through out the cervical spine. There is uncovertebral joint proliferation with varying degrees of foraminal narrowing. There is moderate to severe canal narrowing at C3-C4 and moderate canal narrowing at C4-C5 related to disc osteophyte complexes. No significant facet arthrosis. Prevertebral soft tissues nor mal. CT PELVIS: No acute fracture. Alignment is normal. Mild degenerative joint disease of the sacroiliac joints. Mild degenerative joint disease of the hips. There is some trochanteric enthesopathy on the r ight. There are surgical clips in the lower abdomen. There is mild right hydronephrosis. IMPRESSION: 1. No acute intracranial abnormality. 2. No acute osseous abnormality of the cervical spine. 3. There is severe canal stenosis at C2 along the posterior aspect of the upper dens due to extensive partially calcified retro-odontoid soft tissue. Moderate to severe canal narrowing at C3-C4 and mod erate at C4-C5. If there is concern for cord contusion in the setting of trauma, MRI could be obtained. 4. Findings suspicious for DISH. 5. No acute osseous abnormality of the pelvis. Electronically signed by: Roberta Hodge MD (09/15/2020 3:26 PM) [id number]
--- NOTE | 2020-09-15 16:38 | EKG ---
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
--- NOTE | 2020-09-15 18:50 | PDOC1 ---
History and Physical Date of Admission Date of Admission DATE: 09/15/20 TIME: 18:50 Identification/Chief Complaint Chief Complaint right hip pain Source Source: Chart review, Patient History of Present Illness History of Present Illness Mr. Moses is a 69-year-old male with acute joint pain and unable to walk. He fell yesterday twice, and has new right hip pain. He has not been able to place weight on it since his second fall. He did hit his head. He denies being on blood thinners. He did not pass out. He also has neck pain associated with his head injury. The pain is a sharp shooting moderate pain without alleviating factors. He denies any chest belly or thoracic or lumbar back pain. he had recent carotid surgery by DR. Oreilly here, no recent neuro symptoms, that surg went well, he is falling due to hip pain and hip weakness, like the joint just goes out on him Past Medical History Cardiovascular: CAD, HTN, Hyperlipidemia CENTRAL NERVOUS SYSTEM: CVA Renal/: Other Endocrine: Diabetes Past Surgical History Past Surgical History: Other (carotid) Family History Family History: No Significant, Diabetes Social History Smoke: No ALCOHOL: none Drugs: None Current Problem List Problem List Problems Medical Problems: (1) Right hip pain Status: Acute Current Medications Current Medications Active Scripts Active Reported Hydrocodone-Apap 5-325 (Hydrocodone Bit/Acetaminophen) 1 Tab Tablet 1 Tab PO PRN Q6HRS PRN Lasix (Furosemide) 40 Mg Tablet 40 Mg PO DAILY Amlodipine Besylate 10 Mg Tablet 10 Mg PO DAILY Losartan Potassium 100 Mg Tablet 100 Mg PO DAILY Metoprolol Succinate ( Xl ) (Metoprolol Succinate) 25 Mg Tab.er.24h 25 Mg PO DAILY Atorvastatin Calcium 20 Mg Tablet 20 Mg PO HS Glipizide Er (Glipizide) 2.5 Mg Tab.er.24 5 Mg PO HS Aspirin 81 Mg Tab.chew 1 Tab PO DAILY Tamsulosin Hcl 0.4 Mg Cap.er.24h 0.4 Mg PO BID Metformin Hcl Er (Metformin Hcl) 500 Mg Tab.er.24h 1,000 Mg PO HS Allergies Allergies: Coded Allergies: codeine (Verified Allergy, Severe, Anaphylaxis, 09/15/20) elevated temp and "code blue" TAKES HYDROCODONE AT HOME Penicillins (Verified Allergy, Intermediate, Rash, 05/17/20) poliomyelitis vaccine,killed (Verified Allergy, Intermediate, Hives, 05/17/20) ROS Review of System Review of systems is negative for loss of conscious. . Negative for numbness weakness or tingling in his right lower extremity. General: No: Chills, Night Sweats, Fatigue, Malaise, Appetite, Other PSYCHOLOGICAL ROS: No: Anxiety, Behavioral Disorder, Concentration difficultie, Decreased libido, Depression, Disorientation, Hallucinations, Hostility, Irritablity, Memory difficulties, Mood Swings, Obsessive thoughts, Physical abuse, Sexual abuse, Sleep disturbances, Suicidal ideation, Other Eyes: No Blurry vision, No Decreased vision, No Double vision, No Dry eyes, No Excessive tearing, No Eye Pain, No Itchy Eyes, No Loss of vision, No Photophobia, No Scotomata, No Uses contacts, No Uses glasses, No Other HEENT: YES: Heacaches; No: Visual Changes, Hearing change, Nasal congestion, Nasal discharge, Oral lesions, Sinus pain, Sore Throat, Epistaxis, Sneezing, Snoring, Tinnitus, Vertigo, Vocal changes, Other Respiratory: No: Cough, Hemoptysis, Orthopnea, Pleuritic Pain, Shortness of breath, SOB with excertion, Sputum Changes, Stridor, Tachypnea, Wheezing, Other Cardiovascular: No Chest Pain, No Palpitations, No Orthopnea, No Paroxysmal Noc. Dyspnea, No Edema, No Lt Headedness, No Other Gastrointestinal: No Nausea, No Vomiting, No Abdominal Pain, No Diarrhea, No Constipation, No Melena, No Hematochezia, No Other Genitourinary: No Dysuria, No Frequency, No Incontinence, No Hematuria, No Retention, No Discharge, No Urgency, No Pain, No Flank Pain, No Other, No , No , No , No , No , No , No Musculoskeletal: Yes Gait Disturbance, Yes Joint Pain, Yes Joint Stiffness, Yes Muscular Weakness Neurological: No Behavorial Changes, No Bowel/Bladder ControlChng, No Confusion, No Dizziness, No Headaches, No Impaired Coord/balance, No Memory Loss, No Numbness/Tingling, No Seizures, No Speech Problems, No Tremors, No Visual Changes, No Weakness, No Other Skin: No Dry Skin, No Eczema, No Hair Changes, No Lumps, No Mole Changes, No Mottling, No Nail Changes, No Pruritus, No Rash, No Skin Lesion Changes, No Other, No Acne Physical Exam General: Oriented X3, Cooperative, No acute distress HEENT: Atraumatic Lungs: Clear to auscultation Heart: S1S2, RRR Abdomen: Normal bowel sounds, Soft (obese) Extremities: No cyanosis, Normal pulses, Other (hip pain with movement or palpation, right hip) Skin: No rashes, No significant lesion Neuro: Normal speech Psych/Mental Status: Mental status NL, Mood NL Vitals Vitals Vital Signs Date Time Temp Pulse Resp B/P (MAP) Pulse Ox O2 Delivery O2 Flow Rate FiO2 09/15/20 16:23 55 149/62 (91) 98 Nasal Cannula 2.0 09/15/20 12:45 98.4 22 98.4 Labs Labs Laboratory Tests Test 09/15/20 14:00 09/15/20 14:10 Sodium Level 145 mmol/L (136-145) Potassium Level 4.2 mmol/L (3.5-5.1) Chloride Level 107 mmol/L (98-107) Carbon Dioxide Level 29 mmol/L (21-32) Anion Gap 9 (6-14) Blood Urea Nitrogen 18 mg/dL (8-26) Creatinine 1.0 mg/dL (0.7-1.3) Estimated GFR (Cockcroft-Gault) 73.7 BUN/Creatinine Ratio 18 (6-20) Glucose Level 148 mg/dL (70-99) Calcium Level 9.3 mg/dL (8.5-10.1) Total Bilirubin 0.9 mg/dL (0.2-1.0) Aspartate Amino Transf (AST/SGOT) 17 U/L (15-37) Alanine Aminotransferase (ALT/SGPT) 24 U/L (16-63) Alkaline Phosphatase 133 U/L (46-116) Total Protein 7.6 g/dL (6.4-8.2) Albumin 3.8 g/dL (3.4-5.0) Albumin/Globulin Ratio 1.0 (1.0-1.7) White Blood Count 10.1 x10^3/uL (4.0-11.0) Red Blood Count 5.14 x10^6/uL (4.30-5.70) Hemoglobin 14.2 g/dL (13.0-17.5) Hematocrit 42.5 % (39.0-53.0) Mean Corpuscular Volume 83 fL (79-100) Mean Corpuscular Hemoglobin 28 pg (25-35) Mean Corpuscular Hemoglobin Concent 34 g/dL (31-37) Red Cell Distribution Width 15.6 % (11.5-14.5) Platelet Count 245 x10^3/uL (140-400) Neutrophils (%) (Auto) 77 % (31-73) Lymphocytes (%) (Auto) 15 % (24-48) Monocytes (%) (Auto) 6 % (0-9) Eosinophils (%) (Auto) 2 % (0-3) Basophils (%) (Auto) 1 % (0-3) Neutrophils # (Auto) 7.7 x10^3/uL (1.8-7.7) Lymphocytes # (Auto) 1.5 x10^3/uL (1.0-4.8) Monocytes # (Auto) 0.6 x10^3/uL (0.0-1.1) Eosinophils # (Auto) 0.2 x10^3/uL (0.0-0.7) Basophils # (Auto) 0.1 x10^3/uL (0.0-0.2) Laboratory Tests Test 09/15/20 14:00 09/15/20 14:10 Sodium Level 145 mmol/L (136-145) Potassium Level 4.2 mmol/L (3.5-5.1) Chloride Level 107 mmol/L (98-107) Carbon Dioxide Level 29 mmol/L (21-32) Anion Gap 9 (6-14) Blood Urea Nitrogen 18 mg/dL (8-26) Creatinine 1.0 mg/dL (0.7-1.3) Estimated GFR (Cockcroft-Gault) 73.7 BUN/Creatinine Ratio 18 (6-20) Glucose Level 148 mg/dL (70-99) Calcium Level 9.3 mg/dL (8.5-10.1) Total Bilirubin 0.9 mg/dL (0.2-1.0) Aspartate Amino Transf (AST/SGOT) 17 U/L (15-37) Alanine Aminotransferase (ALT/SGPT) 24 U/L (16-63) Alkaline Phosphatase 133 U/L (46-116) Total Protein 7.6 g/dL (6.4-8.2) Albumin 3.8 g/dL (3.4-5.0) Albumin/Globulin Ratio 1.0 (1.0-1.7) White Blood Count 10.1 x10^3/uL (4.0-11.0) Red Blood Count 5.14 x10^6/uL (4.30-5.70) Hemoglobin 14.2 g/dL (13.0-17.5) Hematocrit 42.5 % (39.0-53.0) Mean Corpuscular Volume 83 fL (79-100) Mean Corpuscular Hemoglobin 28 pg (25-35) Mean Corpuscular Hemoglobin Concent 34 g/dL (31-37) Red Cell Distribution Width 15.6 % (11.5-14.5) Platelet Count 245 x10^3/uL (140-400) Neutrophils (%) (Auto) 77 % (31-73) Lymphocytes (%) (Auto) 15 % (24-48) Monocytes (%) (Auto) 6 % (0-9) Eosinophils (%) (Auto) 2 % (0-3) Basophils (%) (Auto) 1 % (0-3) Neutrophils # (Auto) 7.7 x10^3/uL (1.8-7.7) Lymphocytes # (Auto) 1.5 x10^3/uL (1.0-4.8) Monocytes # (Auto) 0.6 x10^3/uL (0.0-1.1) Eosinophils # (Auto) 0.2 x10^3/uL (0.0-0.7) Basophils # (Auto) 0.1 x10^3/uL (0.0-0.2) VTE Prophylaxis Ordered VTE Prophylaxis Devices: No VTE Pharmacological Prophylaxi: Yes Assessment/Plan Assessment/Plan multiple falls, right hip pain, pain in hip before falls, he feels failure of hip joint, and his primary care would like him to discuss possible need for hip replacement, he has seen an Ortho at [email or web address], and he cant remember the name right now Dm2, obese, BMI 40 weakness, falls, ortho prior carotid stenosis, s/p surg htn Justifications for Admission Other Justification VIOLETTE ARSHAD MD Sep 15, 2020 18:50
[2020-09-15 19:00] VITALS: BP 133/52
[2020-09-15] MEDS: metFORMIN XR 500 MG TAB.ER.24H PO SCH (21:53)
[2020-09-15] MEDS: TAMSULOSIN 0.4 MG CAP.ER.24H. PO SCH (21:54)
[2020-09-15] MEDS: glipiZIDE ER 2.5 MG TAB.ER.24 PO SCH (21:54)
[2020-09-15] MEDS: ATORVASTATIN CALCIUM 20 MG TABLET PO SCH (21:54)
[2020-09-15 23:00] VITALS: BP 157/56
[2020-09-16 03:00] VITALS: BP 133/45
[2020-09-16 07:00] VITALS: BP 156/64
[2020-09-16] MEDS: ASPIRIN CHEWABLE 81 MG TABLET. PO SCH (08:43)
[2020-09-16] MEDS: FUROSEMIDE 40 MG TABLET. PO SCH (08:43)
[2020-09-16] MEDS: METOPROLOL SUCC 24HR ER 25 MG TAB.ER.24H. PO SCH (08:43)
[2020-09-16] MEDS: TAMSULOSIN 0.4 MG CAP.ER.24H. PO SCH ×2 (08:43→22:53)
--- NOTE | 2020-09-16 10:16 | PDOC ---
[employer] PROGRESS NOTE Date of Service DOS: DATE: 09/16/20 TIME: 10:15 Chief Complaint Chief Complaint multiple falls, right hip pain, pain in hip before falls, he feels failure of hip joint, and his primary care would like him to discuss possible need for hip replacement, he has seen an Ortho at [facility], and he cant remember the name right now Dm2, obese, BMI 40 weakness, falls, ortho prior carotid stenosis, s/p surg htn History of Present Illness History of Present Illness Dr. 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 for leg scale Vitals/I&O Vitals/I&O: Vital Signs Date Time Temp Pulse Resp B/P (MAP) Pulse Ox O2 Delivery O2 Flow Rate FiO2 09/16/20 08:43 61 156/64 09/16/20 08:30 Nasal Cannula 2.0 09/16/20 07:00 97.8 18 95 97.8 Physical Exam General: Oriented X3, Cooperative, No acute distress Lungs: Clear, Other Abdomen: Normal bowel sounds, Soft (obese) Extremities: No cyanosis, Normal pulses, Other (hip pain with movement or palpation, right hip) Skin: No rashes, Other (marked scale and dryness to bilat lower legs, ) Labs Labs: Laboratory Tests Test 09/15/20 14:00 09/15/20 14:10 09/15/20 21:43 Sodium Level 145 mmol/L (136-145) Potassium Level 4.2 mmol/L (3.5-5.1) Chloride Level 107 mmol/L (98-107) Carbon Dioxide Level 29 mmol/L (21-32) Anion Gap 9 (6-14) Blood Urea Nitrogen 18 mg/dL (8-26) Creatinine 1.0 mg/dL (0.7-1.3) Estimated GFR (Cockcroft-Gault) 73.7 BUN/Creatinine Ratio 18 (6-20) Glucose Level 148 mg/dL (70-99) Calcium Level 9.3 mg/dL (8.5-10.1) Total Bilirubin 0.9 mg/dL (0.2-1.0) Aspartate Amino Transf (AST/SGOT) 17 U/L (15-37) Alanine Aminotransferase (ALT/SGPT) 24 U/L (16-63) Alkaline Phosphatase 133 U/L (46-116) Total Protein 7.6 g/dL (6.4-8.2) Albumin 3.8 g/dL (3.4-5.0) Albumin/Globulin Ratio 1.0 (1.0-1.7) White Blood Count 10.1 x10^3/uL (4.0-11.0) Red Blood Count 5.14 x10^6/uL (4.30-5.70) Hemoglobin 14.2 g/dL (13.0-17.5) Hematocrit 42.5 % (39.0-53.0) Mean Corpuscular Volume 83 fL (79-100) Mean Corpuscular Hemoglobin 28 pg (25-35) Mean Corpuscular Hemoglobin Concent 34 g/dL (31-37) Red Cell Distribution Width 15.6 % (11.5-14.5) Platelet Count 245 x10^3/uL (140-400) Neutrophils (%) (Auto) 77 % (31-73) Lymphocytes (%) (Auto) 15 % (24-48) Monocytes (%) (Auto) 6 % (0-9) Eosinophils (%) (Auto) 2 % (0-3) Basophils (%) (Auto) 1 % (0-3) Neutrophils # (Auto) 7.7 x10^3/uL (1.8-7.7) Lymphocytes # (Auto) 1.5 x10^3/uL (1.0-4.8) Monocytes # (Auto) 0.6 x10^3/uL (0.0-1.1) Eosinophils # (Auto) 0.2 x10^3/uL (0.0-0.7) Basophils # (Auto) 0.1 x10^3/uL (0.0-0.2) Glucose (Fingerstick) 148 mg/dL (70-99) Review of Systems Review of Systems: no n.v.d Assessment and Plan Assessmemt and Plan Problems Medical Problems: (1) Right hip pain Status: Acute Comment Review of Relevant I have reviewed the following items jose (where applicable) has been applied. Medications: Current Medications Medications (Trade) Dose Ordered Sig/Giorgio Route PRN Reason Start Time Stop Time Status Last Admin Dose Admin Amlodipine Besylate (Norvasc) 10 mg DAILY PO 09/16/20 09:00 09/16/20 08:43 Aspirin (Aspirin Chewable) 81 mg DAILY PO 09/16/20 09:00 09/16/20 08:43 Atorvastatin Calcium (Lipitor) 20 mg HS PO 09/15/20 21:00 09/15/20 21:54 Furosemide (Lasix) 40 mg DAILY PO 09/16/20 09:00 09/16/20 08:43 Glipizide (Glucotrol Er) 5 mg HS PO 09/15/20 21:00 09/15/20 21:54 Metformin HCl (Glucophage Xr) 1,000 mg HS PO 09/15/20 21:00 09/15/20 21:53 Metoprolol Succinate (Toprol Xl) 25 mg DAILY PO 09/16/20 09:00 09/16/20 08:43 Tamsulosin HCl (Flomax) 0.4 mg BID PO 09/15/20 21:00 09/16/20 08:43 Justifications for Admission Other Justification VIOLETTE ARSHAD MD Sep 16, 2020 10:16
--- NOTE | 2020-09-16 12:19 | RAD ---
EXAM: Cervical spine MRI without contrast. HISTORY: Stenosis. TECHNIQUE: Multiplanar, multisequence magnetic resonance imaging of the cervical spine was performed without contrast. COMPARISON: None. FINDINGS: The exam is extremely limited due to motion. There is mild multilevel degenerative listhesi s. There is multilevel endplate remodeling and osteophytosis. There is fluid within the disc space at C5-C6. There is no adjacent endplate edema. There is no fracture. There is no suspicious osseous les ion. There is partially calcified pannus surrounding the dens. This results in significant narrowing of the central canal at the level of C1. This level is not included on the dedicated axial images. Ho wever, the central canal appears to measure 4.7 mm in anterior posterior dimension on sagittal images at the level of C1. No convincing spinal cord signal abnormality is seen to suggest edema or myeloma lacia. However, the exam is limited due to aforementioned motion. There is ossification of the rn clinical research ior longitudinal ligament multiple levels. There are bulky bridging and partially bridging anterior o steophytes throughout the and cervical spine. At C2-C3, there is a posterior central disc protrusion superimposed on a disc bulge and endplate dwain deling. There is mild bilateral facet arthropathy. There is moderate central canal stenosis measuring 7.9 mm in anterior posterior dimension. At C3-C4, there is a disc bulge and endplate osteophytosis. There is moderate bilateral facet arthrop athy. There is uncovertebral arthropathy. There is moderate right foraminal stenosis. There is modera te central canal stenosis measuring 6.9 mm in anterior posterior dimension. At C4-C5, there is a left paracentral disc protrusion to proposed on a disc bulge and endplate remode ling. There is mild bilateral facet arthropathy. There is uncovertebral arthropathy. There is mild-to -moderate left foraminal stenosis. There is severe central canal stenosis measuring 4.9 mm in anterio r posterior dimension. At C5-C6, there is fluid within the disc space. There is mild bilateral facet arthropathy. There is m oderate central canal stenosis measuring 6.2 mm in anterior posterior dimension. At C6-C7, there is a disc bulge and endplate remodeling. There is no stenosis. IMPRESSION: 1. Significantly limited exam due to motion. No convincing spinal cord lesion is seen to suggest myel omalacia or edema. 2. Severe partially calcified pannus surrounding the dens, resulting in severe narrowing of the centr al canal and deformation the spinal cord at the level of C1. 3. 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 4. Nonspecific fluid within the disc space at C5-C6. There is no significant endplate irregularity at this level to suggest discitis/osteomyelitis. 5. Diffuse hepatic skeletal hyperostosis. Electronically signed by: Sakshi Camilo MD (09/16/2020 12:17 PM) [id number]
--- NOTE | 2020-09-16 13:06 | PDOC ---
Provider Note Date of Service: DATE: 09/16/20 TIME: 13:01 Provider Note patient seen at 1215 consulted for cervical stenosis difficulty walking, frequent falling, progressive over months 4+/5 left upper and lower extremities, hyperreflexic on the left, upgoing toes bilaterally MRI with Severe partially calcified pannus surrounding the dens, resulting in severe narrowing of the central canal and deformation the spinal cord at the level of C1, Multilevel degenerative change with superimposed ossification of the posterior longitudinal ligament at multiple cervical levels, resulting in significant and foraminal and central canal stenosis. Clouded films to [facility] will require complex surgery to decompress the spinal cord d/w Dr. Blue Justifications for Admission Other Justification GEORGIANA RHODES MD Sep 16, 2020 13:06
--- NOTE | 2020-09-16 13:23 | NUR ---
SW following. Discussed with RN, pt from home alone, 2L, cardiac diet. Therapy recommending SNF. SW met with pt, pt would like referral sent to [facility]. Pt may need surgery prior to discharge. Referral faxed to [facility]. RN obtaining COVID swab for placement. SW will continue to follow.
[2020-09-16 15:00] VITALS: BP 134/63
[2020-09-16 19:00] VITALS: BP 133/57
[2020-09-16] MEDS: metFORMIN XR 500 MG TAB.ER.24H PO SCH (22:53)
[2020-09-16] MEDS: ATORVASTATIN CALCIUM 20 MG TABLET PO SCH (22:53)
[2020-09-16] MEDS: MINERAL OIL/PETROLATUM TOPICAL CREAM 113GM JAR. TP PRN (22:54)
[2020-09-16] MEDS: glipiZIDE ER 2.5 MG TAB.ER.24 PO SCH (22:54)
[2020-09-16 23:00] VITALS: BP 121/61
[2020-09-16] MEDS: HYDROcodone/APAP 5/325MG 1 TAB TABLET PO PRN (23:19)
--- NOTE | 2020-09-16 23:34 | CONS ---
DATE OF CONSULTATION: 09/16/2020 REQUESTING CONSULTATION: Mignon Rosales MD REASON FOR CONSULTATION: Right hip pain. HISTORY OF PRESENT ILLNESS: The patient is a 69-year-old male who indicates that he has had a recent, but also ongoing history of falls and he states that he fell twice yesterday and is painful over the outside of the right hip and feels like it is giving out on him and will not hold his weight. When I asked him to describe his pain, he said that this really is not isolated to the hip or groin area, but instead seems to be shooting somewhat from the low back and he points to proximally over the sacroiliac joint area and sometimes radiates down his leg. He also on further questioning seems to be weak, feeling like after he stands for a while, he has to ambulate with a walker, but after he stands for a while, his legs get somewhat weak and rubbery and give out on him. He also indicates on further questioning a history of carpal tunnel release that was done on his left upper extremity. He said that he did have apparently nerve conduction studies because they measured him with electrodes and he had a surgery for carpal tunnel release at [facility] that did not help him at all. He stated that the surgeon told him that they would try to do the right carpal tunnel next and then maybe look for other causes of his problem. He did state that he has had neck pain and stiffness and the upper extremity paresthesias for some time and does not recall a specific time interval. Although he did hit his head with this fall, he denies any loss of consciousness and indicates that the numbness, tingling in the upper extremities is no worse necessarily after the issue. PAST MEDICAL HISTORY: Significant for coronary artery disease, hyperlipidemia, hypertension and a history of stroke and diabetes. PAST SURGICAL HISTORY: Left carpal tunnel release, aortic valve replacement and apparently two kidney transplant surgeries. SOCIAL HISTORY: Denies smoking, alcohol or drug use. He is unaware of any pertinent family history. DRUG ALLERGIES: HE HAS ALLERGIES TO PENICILLIN, CODEINE AND HAD A REACTION TO THE POLIO VACCINE. REVIEW OF SYSTEMS: Again, he has described some of the issues have been going on much longer term in terms of his leg weakness and history of falls, although they have become more severe recently. He also has the described numbness in both hands and on the left, unrelieved at all by carpal tunnel release. PHYSICAL EXAMINATION: On examination, he has reasonable motion of bilateral hips. It seems to pull more on his back than anything if I get him at more extremes of range of motion. There is no groin pain. No tenderness over the trochanteric bursa or lateral aspect of the hip where he had fallen. He can bear full weight through an extended extremity bilaterally and he has normal alignment, stability, bilateral knees and ankles. While I do not exactly elicit symptoms with a straight leg raise, he has a lot of tightness in the back and inconsistently he describes a pain radiating down the right leg more so than the left. On examination of the upper extremities, he has well-healed incision from carpal tunnel release on the left. He really has paresthesias in the hands globally. I do not indicate a diminution of his reflexes in upper extremities. He has good shoulder, elbow and wrist motion bilaterally, but very limited motion of his neck and is quite symptomatic with although I cannot elicit exactly a Spurling sign that does seem to make him symptomatic in the upper extremities as well, really not the lower extremities. IMAGING STUDIES: Significant for hip and pelvis x-rays show well-maintained joint space heights. He does have a little bit of a Cam deformity on the right femoral head, but really no joint space narrowing and this is not symptomatic on examination. CT of the pelvis shows no evidence of any acute fracture and the radiology report shows only mild degenerative joint disease of the hips, which I agree with and no evidence of acute fracture. It is notable; however, that CT of the cervical spine shows severe canal narrowing at multiple levels and on radiology report shows severe canal stenosis at C2 due to some calcified retro-odontoid soft tissue and [id number] canal narrowing C3-C4 and moderate at C4-C5. IMPRESSION: 1. Right lower extremity weakness and giving way with history of falls. 2. Apparent findings of perhaps cervical spinal stenosis with probable myelopathy concerns. 3. Likely some lumbar spinal stenosis findings in the lower extremities as well. No evidence of hip fracture or severe degenerative joint disease, warranting any orthopedic intervention. TREATMENT PLAN: I went over with him that I am concerned that he probably has some nerve root compression. He felt that it seems like a pinched nerve in his back as the pain runs from approximately his sacroiliac area on the right down the right leg with a stabbing type sensation. He also describes some if he stands for more extended period of time. 1. He has to walk with the assistance of a walker. 2. If he stands or walks for any longer period of time, has to sit down and rest because his legs become numb, weak and rubbery. Lastly, it is certainly I think significant that he was seen at [facility] and apparently had an EMG positive for carpal tunnel syndrome, but underwent a carpal tunnel release on the left with no relief whatsoever. He has similar symptoms on the right and I am really concerned based on the constellation of physical examination findings and the lack of response to that procedure and the CT cervical spine that he certainly may have some severe compression in the cervical spine and really perhaps some concern with early myelopathic findings. I therefore, recommend neurosurgical evaluation and imaging as recommended by them. I really do not have much more to offer from an orthopedic standpoint as his hip appears intact and I think these are mainly neurologic issues. NOHELIA/CAROLINE DR: Johnny TID: [id number]
[2020-09-17 03:00] VITALS: BP 116/51
[2020-09-17 07:00] VITALS: BP 134/40
[2020-09-17] MEDS: TAMSULOSIN 0.4 MG CAP.ER.24H. PO SCH ×2 (08:32→21:00)
[2020-09-17] MEDS: ASPIRIN CHEWABLE 81 MG TABLET. PO SCH (08:33)
[2020-09-17] MEDS: METOPROLOL SUCC 24HR ER 25 MG TAB.ER.24H. PO SCH (08:33)
[2020-09-17] MEDS: FUROSEMIDE 40 MG TABLET. PO SCH (08:33)
[2020-09-17] MEDS: HYDROcodone/APAP 5/325MG 1 TAB TABLET PO PRN ×2 (08:34→19:45)
[2020-09-17] MEDS: MINERAL OIL/PETROLATUM TOPICAL CREAM 113GM JAR. TP PRN ×2 (08:36→19:46)
[2020-09-17 11:00] VITALS: BP 127/47
--- NOTE | 2020-09-17 12:04 | PDOC ---
PROGRESS NOTES Date of Service DATE: 09/17/20 TIME: 12:02 Subjective Subjective no new complaints no change in exam discussed options with patient, He would require extensive posterior cervical surgery at this time he would like to go for rehab and follow up with me as an OP Objective Objective Vital Signs Date Time Temp Pulse Resp B/P (MAP) Pulse Ox O2 Delivery O2 Flow Rate FiO2 09/17/20 11:00 97.6 56 19 127/47 (73) 94 Nasal Cannula 2.0 97.6 Intake and Output 09/17/20 07:00 Intake Total 520 ml Balance 520 ml Intake Oral 520 ml # Voids 4 Assessment Assessment Problems Medical Problems: (1) Right hip pain Status: Acute Comment Review of Relevant I have reviewed the following items jose (where applicable) has been applied. Labs Laboratory Tests Test 09/15/20 14:00 09/15/20 14:10 09/15/20 21:43 09/16/20 18:31 Sodium Level 145 mmol/L (136-145) Potassium Level 4.2 mmol/L (3.5-5.1) Chloride Level 107 mmol/L (98-107) Carbon Dioxide Level 29 mmol/L (21-32) Anion Gap 9 (6-14) Blood Urea Nitrogen 18 mg/dL (8-26) Creatinine 1.0 mg/dL (0.7-1.3) Estimated GFR (Cockcroft-Gault) 73.7 BUN/Creatinine Ratio 18 (6-20) Glucose Level 148 mg/dL (70-99) Calcium Level 9.3 mg/dL (8.5-10.1) Total Bilirubin 0.9 mg/dL (0.2-1.0) Aspartate Amino Transf (AST/SGOT) 17 U/L (15-37) Alanine Aminotransferase (ALT/SGPT) 24 U/L (16-63) Alkaline Phosphatase 133 U/L (46-116) Total Protein 7.6 g/dL (6.4-8.2) Albumin 3.8 g/dL (3.4-5.0) Albumin/Globulin Ratio 1.0 (1.0-1.7) White Blood Count 10.1 x10^3/uL (4.0-11.0) Red Blood Count 5.14 x10^6/uL (4.30-5.70) Hemoglobin 14.2 g/dL (13.0-17.5) Hematocrit 42.5 % (39.0-53.0) Mean Corpuscular Volume 83 fL (79-100) Mean Corpuscular Hemoglobin 28 pg (25-35) Mean Corpuscular Hemoglobin Concent 34 g/dL (31-37) Red Cell Distribution Width 15.6 % (11.5-14.5) Platelet Count 245 x10^3/uL (140-400) Neutrophils (%) (Auto) 77 % (31-73) Lymphocytes (%) (Auto) 15 % (24-48) Monocytes (%) (Auto) 6 % (0-9) Eosinophils (%) (Auto) 2 % (0-3) Basophils (%) (Auto) 1 % (0-3) Neutrophils # (Auto) 7.7 x10^3/uL (1.8-7.7) Lymphocytes # (Auto) 1.5 x10^3/uL (1.0-4.8) Monocytes # (Auto) 0.6 x10^3/uL (0.0-1.1) Eosinophils # (Auto) 0.2 x10^3/uL (0.0-0.7) Basophils # (Auto) 0.1 x10^3/uL (0.0-0.2) Glucose (Fingerstick) 148 mg/dL (70-99) SARS-CoV-2 RNA (DONATO) Negative (Negative) Test 09/16/20 22:51 09/17/20 07:50 Glucose (Fingerstick) 109 mg/dL (70-99) 155 mg/dL (70-99) Laboratory Tests Test 09/16/20 18:31 09/16/20 22:51 09/17/20 07:50 SARS-CoV-2 RNA (DONATO) Negative (Negative) Glucose (Fingerstick) 109 mg/dL (70-99) 155 mg/dL (70-99) Medications Current Medications Amlodipine Besylate (Norvasc) 10 mg DAILY PO Last administered on 09/17/20at 08:32; Start 09/16/20 at 09:00 Aspirin (Aspirin Chewable) 81 mg DAILY PO Last administered on 09/17/20at 08:33; Start 09/16/20 at 09:00 Atorvastatin Calcium (Lipitor) 20 mg HS PO Last administered on 09/16/20 22:53; Start 09/15/20 at 21:00 Furosemide (Lasix) 40 mg DAILY PO Last administered on 09/17/20 08:33; Start 09/16/20 at 09:00 Glipizide (Glucotrol Er) 5 mg HS PO Last administered on 09/15/20at 21:54; Start 09/15/20 at 21:00 Acetaminophen/ Hydrocodone Bitart (Lortab 5/325) 1 tab PRN Q6HRS PRN PO PAIN Last administered on 09/17/20at 08:34; Start 09/15/20 at 19:00 Metformin HCl (Glucophage Xr) 1,000 mg HS PO Last administered on 09/16/20 22:53; Start 09/15/20 at 21:00 Metoprolol Succinate (Toprol Xl) 25 mg DAILY PO Last administered on 09/17/20 08:33; Start 09/16/20 at 09:00 Tamsulosin HCl (Flomax) 0.4 mg BID PO Last administered on 09/17/20at 08:32; Start 09/15/20 at 21:00 Multi-Ingredient Ointment (Hydrocerin, Eucerin Cream) 1 dalila PRN Q1HR PRN TP DRY SKIN / SCALING Last administered on 09/17/20at 08:36; Start 09/16/20 at 10:15 Active Scripts Active Reported Hydrocodone-Apap 5-325 (Hydrocodone Bit/Acetaminophen) 1 Tab Tablet 1 Tab PO PRN Q6HRS PRN Lasix (Furosemide) 40 Mg Tablet 40 Mg PO DAILY Amlodipine Besylate 10 Mg Tablet 10 Mg PO DAILY Losartan Potassium 100 Mg Tablet 100 Mg PO DAILY Metoprolol Succinate ( Xl ) (Metoprolol Succinate) 25 Mg Tab.er.24h 25 Mg PO DAILY Atorvastatin Calcium 20 Mg Tablet 20 Mg PO HS Glipizide Er (Glipizide) 2.5 Mg Tab.er.24 5 Mg PO HS Aspirin 81 Mg Tab.chew 1 Tab PO DAILY Tamsulosin Hcl 0.4 Mg Cap.er.24h 0.4 Mg PO BID Metformin Hcl Er (Metformin Hcl) 500 Mg Tab.er.24h 1,000 Mg PO HS Vitals/I & O Vital Sign - Last 24 Hours 09/16/20 09/16/20 09/16/20 09/16/20 15:00 19:00 22:45 23:00 Temp 98.3 98.4 98.2 98.3 98.4 98.2 Pulse 75 68 71 Resp 18 20 18 B/P (MAP) 134/63 (86) 133/57 (82) 121/61 (81) Pulse Ox 93 94 95 O2 Delivery Nasal Cannula Nasal Cannula O2 Flow Rate 2.0 2.0 09/17/20 09/17/20 09/17/20 09/17/20 03:00 07:00 08:00 08:32 Temp 98.6 98.5 98.6 98.5 Pulse 63 62 62 Resp 20 20 B/P (MAP) 116/51 (72) 134/40 (71) 134/40 Pulse Ox 95 95 O2 Delivery Nasal Cannula Room Air O2 Flow Rate 2.0 09/17/20 09/17/20 08:33 11:00 Temp 97.6 97.6 Pulse 62 56 Resp 19 B/P (MAP) 134/40 127/47 (73) Pulse Ox 94 O2 Delivery Nasal Cannula O2 Flow Rate 2.0 Intake and Output 09/16/20 09/16/20 09/17/20 15:00 23:00 07:00 Intake Total 200 ml 320 ml Balance 200 ml 320 ml Justifications for Admission Other Justification GEORGIANA RHODES MD Sep 17, 2020 12:04
--- NOTE | 2020-09-17 12:54 | PDOC ---
[employer] PROGRESS NOTE Date of Service DOS: DATE: 09/17/20 TIME: 12:52 Chief Complaint Chief Complaint multiple falls, generalized weakness, cervical stenosis right hip pain, pain in hip before falls, Dm2, obese, BMI 40 weakness, falls, ortho prior carotid stenosis, s/p surg htn History of Present Illness History of Present Illness plan skilled in AM cont current f.u Dr. Jones as outpatient consider [facility] for spinal surg. to c spine Vitals/I&O Vitals/I&O: Vital Signs Date Time Temp Pulse Resp B/P (MAP) Pulse Ox O2 Delivery O2 Flow Rate FiO2 09/17/20 11:00 97.6 56 19 127/47 (73) 94 Nasal Cannula 2.0 97.6 I & O 09/16/20 09/16/20 09/17/20 15:00 23:00 07:00 Intake Total 200 ml 320 ml Balance 200 ml 320 ml Physical Exam General: Oriented X3, Cooperative, No acute distress Lungs: Clear, Other Abdomen: Normal bowel sounds, Soft (obese) Extremities: No cyanosis, Normal pulses, Other (hip pain with movement or palpation, right hip) Skin: No rashes, Other (marked scale and dryness to bilat lower legs, ) Labs Labs: Laboratory Tests Test 09/16/20 18:31 09/16/20 22:51 09/17/20 07:50 SARS-CoV-2 RNA (DONATO) Negative (Negative) Glucose (Fingerstick) 109 mg/dL (70-99) 155 mg/dL (70-99) Assessment and Plan Assessmemt and Plan Problems Medical Problems: (1) Right hip pain Status: Acute Comment Review of Relevant I have reviewed the following items jose (where applicable) has been applied. Justifications for Admission Other Justification VIOLETTE ARSHAD MD Sep 17, 2020 12:54
[2020-09-17] MEDS ORDERED: HYDR-2761 PO (12:56)
--- NOTE | 2020-09-17 12:57 | SNU/HH DC ---
DISCHARGE ORDERS DISCHARGE INFORMATION: DISCHARGE DATE: Sep 17, 2020 FINAL DIAGNOSIS cervical spine stenosis difficulty walking, frequent falling, progressive over months 4+/5 left upper and lower extremities, hyperreflexic on the left, upgoing toes bilaterally obese, BMI 40 dm2 htn Problems Medical Problems: (1) Right hip pain Status: Acute CONDITION ON DISCHARGE: Stable CODE STATUS: Code Status: Full JAIL: SNF STAY <30 DAYS: Yes POST DISCHARGE ORDERS: ACTIVITY ORDERS: No restrictions, Resume previous activity, Activity as tolerated WEIGHT BEARING STATUS: No restrictions, Full weight bearing, As tolerated DIET AFTER DISCHARGE: Cardiac WOUND/INCISION CARE: No wound care needed CHECKS AFTER DISCHARGE: CHECKS AFTER DISCHARGE: Check blood press - daily, Check your Temp as needed FOLLOW-UP: PHYSICIAN FOLLOW-UP: Dr. Jones 2-4 weeks TREATMENT/EQUIPMENT ORDERS: ADAPTIVE EQUIPMENT NEEDED: Front wheeled walker RESPIRATORY EQUIPMENT NEEDED: Oxygen Physical Therapy For: Evalulation/Treatment Occupational Therapy For: Evaluation/Treatment DISCHARGE MEDICATIONS: Home Meds Active Scripts Hydrocodone Bit/Acetaminophen (HYDROCODONE-APAP 5-325 ) 1 Tab Tablet, 1 TAB PO PRN Q6HRS PRN for PAIN, #25 TAB 0 Refills Prov:VIOLETTE ARSHAD MD 09/17/20 Reported Medications Furosemide (LASIX) 40 Mg Tablet, 40 MG PO DAILY for RX, TAB 10/01/18 Amlodipine Besylate (AMLODIPINE BESYLATE) 10 Mg Tablet, 10 MG PO DAILY for hypertension, TAB 10/01/18 Losartan Potassium (LOSARTAN POTASSIUM) 100 Mg Tablet, 100 MG PO DAILY for HYPERTENSION, TAB 10/01/18 Metoprolol Succinate (METOPROLOL SUCCINATE ( XL )) 25 Mg Tab.er.24h, 25 MG PO DAILY for FOR HYPERTENSION, #30 TAB 0 Refills 10/01/18 Atorvastatin Calcium (ATORVASTATIN CALCIUM) 20 Mg Tablet, 20 MG PO HS for FOR CHOLESTEROL, #30 TAB 0 Refills 10/01/18 Glipizide (GLIPIZIDE ER) 2.5 Mg Tab.er.24, 5 MG PO HS for blood sugar control, #30 TAB 5 Refills 10/01/18 Aspirin (ASPIRIN) 81 Mg Tab.chew, 1 TAB PO DAILY, #90 TAB 3 Refills 06/07/15 Tamsulosin Hcl (TAMSULOSIN HCL) 0.4 Mg Cap.er.24h, 0.4 MG PO BID, TAB 06/07/15 Metformin Hcl (METFORMIN HCL ER) 500 Mg Tab.er.24h, 1000 MG PO HS for DIABETES, TAB 0 Refills 06/07/15 VIOLETTE ARSHAD MD Sep 17, 2020 12:57
--- NOTE | 2020-09-17 13:17 | NUR ---
ANTONETTE following. Discussed with RN, pt accepted at [facility], plan for discharge tomorrow (09/18/20). Discharge orders faxed to [facility]. ANTONETTE will continue to follow. Addendum: 09/17/20 at 1426 by JENARO WHITMAN Transportation arranged with [employer] for tomorrow (09/18/20) for poultry picking machine tender between [id number]. RN and [facility] notified.
[2020-09-17 15:00] VITALS: BP 136/54
[2020-09-17 19:00] VITALS: BP 122/51
[2020-09-17] MEDS: metFORMIN XR 500 MG TAB.ER.24H PO SCH (21:00)
[2020-09-17] MEDS: glipiZIDE ER 2.5 MG TAB.ER.24 PO SCH (21:00)
[2020-09-17] MEDS: ATORVASTATIN CALCIUM 20 MG TABLET PO SCH (21:00)
[2020-09-17 23:00] VITALS: BP 142/57
[2020-09-18 03:00] VITALS: BP 145/57
[2020-09-18 07:30] VITALS: BP 146/64
[2020-09-18] MEDS: FUROSEMIDE 40 MG TABLET. PO SCH (09:08)
[2020-09-18] MEDS: ASPIRIN CHEWABLE 81 MG TABLET. PO SCH (09:08)
[2020-09-18] MEDS: METOPROLOL SUCC 24HR ER 25 MG TAB.ER.24H. PO SCH (09:08)
[2020-09-18] MEDS: TAMSULOSIN 0.4 MG CAP.ER.24H. PO SCH (09:08)
[2020-09-18] MEDS: HYDROcodone/APAP 5/325MG 1 TAB TABLET PO PRN (09:10)
[2020-09-18 11:00] VITALS: BP 162/59
--- NOTE | 2020-09-18 11:42 | NUR ---
Discharge Note: ERICA BOWLING [address] Discharge instructions and discharge home medications reviewed with Sakshi RN at [facility] and a copy given. All questions have been answered and understanding verbalized. The following instructions and handouts were given: f/u with Dr. Jones within a couple weeks. Discontinued lines and drains: Peripheral IV intact. [facility].
--- NOTE | 2020-09-18 13:28 | PDOC3 ---
Discharge Summary Visit Information Date of Admission: Sep 15, 2020 Date of Discharge: Sep 18, 2020 Final Diagnosis multiple falls, generalized weakness, cervical stenosis right hip pain, pain in hip before falls, Dm2, obese, BMI 40 weakness, falls, ortho prior carotid stenosis, s/p surg htn Problems Medical Problems: (1) Right hip pain Status: Acute Brief Hospital Course Allergies Allergies Coded Allergies Type Severity Reaction Last Updated Verified codeine Allergy Severe Anaphylaxis 09/15/20 Yes Penicillins Allergy Intermediate Rash 05/17/20 Yes poliomyelitis vaccine,killed Allergy Intermediate Hives 05/17/20 Yes Vital Signs Vital Signs Date Time Temp Pulse Resp B/P (MAP) Pulse Ox O2 Delivery O2 Flow Rate FiO2 09/18/20 11:00 97.8 65 20 162/59 (93) 95 Nasal Cannula 2.0 97.8 Lab Results Laboratory Tests Test 09/16/20 18:31 09/16/20 22:51 09/17/20 07:50 09/17/20 20:54 SARS-CoV-2 RNA (DONATO) Negative (Negative) Glucose (Fingerstick) 109 mg/dL (70-99) 155 mg/dL (70-99) 145 mg/dL (70-99) Laboratory Tests Test 09/17/20 20:54 Glucose (Fingerstick) 145 mg/dL (70-99) Brief Hospital Course Mr. Moses is a 69 old male, admit with hip pain and weakness, right hemiple jose, ortho consujlted, defect was higher, MRI neck, neurosurg consulted, pt thinks risks are high, will consider, cont the PT and OT, will do sub acute rehab, f.u Dr. Jones as outpatient consider [facility] for spinal surg. to c spine Discharge Information Condition at Discharge: Improved Follow Up: Weeks Disposition/Orders: D/C to Another Facility Scheduled Amlodipine Besylate (Amlodipine Besylate) 10 Mg Tablet, 10 MG PO DAILY for hypertension, (Reported) Entered as Reported by: GRISELDA MORIN on 10/01/18 0850 Last Action: Continued on 09/15/201851 by VIOLETTE ARSHAD Aspirin (Aspirin) 81 Mg Tab.chew, 1 TAB PO DAILY, #90 Ref 3 (Reported) Entered as Reported by: MELLO GARCES on 06/07/15 1122 Last Action: Continued on 09/15/201851 by VIOLETTE ARSHAD Atorvastatin Calcium (Atorvastatin Calcium) 20 Mg Tablet, 20 MG PO HS for FOR CHOLESTEROL, #30 Ref 0 (Reported) Entered as Reported by: GRISELDA MORIN on 10/01/1850 Last Action: Continued on 09/15/201851 by VIOLETTE ARSHAD Furosemide (Lasix) 40 Mg Tablet, 40 MG PO DAILY for RX, (Reported) Entered as Reported by: MELLO GARCES on 10/01/18 1539 Last Action: Continued on 09/15/201851 by VIOLETTE ARSHAD Glipizide (Glipizide Er) 2.5 Mg Tab.er.24, 5 MG PO HS for blood sugar control, #30 Ref 5 (Reported) Entered as Reported by: GRISELDA MORIN on 10/01/1850 Last Action: Continued on 09/15/201851 by VIOLETTE ARSHAD Losartan Potassium (Losartan Potassium) 100 Mg Tablet, 100 MG PO DAILY for HYPERTENSION, (Reported) Entered as Reported by: GRISELDA MORIN on 10/01/1850 Last Action: HELD on 09/15/201851 by VIOLETTE ARSHAD Metformin Hcl (Metformin Hcl Er) 500 Mg Tab.er.24h, 1,000 MG PO HS for DIABETES, Ref 0 (Reported) Entered as Reported by: MELLO GARCES on 06/07/15 112 Last Action: Continued on 09/15/201851 by VIOLETTE ARSHAD Metoprolol Succinate (Metoprolol Succinate ( Xl )) 25 Mg Tab.er.24h, 25 MG PO DAILY for FOR HYPERTENSION, #30 Ref 0 (Reported) Entered as Reported by: GRISELDA MORIN on 10/01/1850 Last Action: Continued on 09/15/201851 by VIOLETTE ARSHAD Tamsulosin Hcl (Tamsulosin Hcl) 0.4 Mg Cap.er.24h, 0.4 MG PO BID, (Reported) Entered as Reported by: MELLO GARCES on 06/07/151121 Last Action: Continued on 09/15/201851 by VIOLETTE ARSHAD Scheduled PRN Hydrocodone Bit/Acetaminophen (Hydrocodone-Apap 5-325 ) 1 Tab Tablet, 1 TAB PO PRN Q6HRS PRN for PAIN, #25 Ref 0 Prescribed by: VIOLETTE ARSHAD on 09/17/20 1256 Patient Instructions Patient Instructions pt seen face to face, > 30 min ' Justicifation of Admission Dx: Justifications for Admission: Justification of Admission Dx: Yes VIOLETTE ARSHAD MD Sep 18, 2020 13:28
== END 2020-09-18 11:43 | DRG 551 ==
LOC: ER 12:35 → 6 SOUTH 15:37
PROVIDERS: ADMIT Internal Medicine; ATTEND Internal Medicine
DX: M48.02 Spinal stenosis, cervical region (principal); J96.01 Acute respiratory failure with hypoxia; G81.91 Hemiplegia, unspecified affecting right dominant side; Z68.41 Body mass index [BMI] 40.0-44.9, adult; Z94.0 Kidney transplant status; M25.551 Pain in right hip; E11.9 Type 2 diabetes mellitus without complications; E66.9 Obesity, unspecified; E78.5 Hyperlipidemia, unspecified; G56.01 Carpal tunnel syndrome, right upper limb; I10 Essential (primary) hypertension; I25.10 Atherosclerotic heart disease of native coronary artery without angina pectoris; R29.6 Repeated falls; Z82.49 Family history of ischemic heart disease and other diseases of the circulatory system; Z83.3 Family history of diabetes mellitus; Z86.73 Personal history of transient ischemic attack (TIA), and cerebral infarction without residual deficits; Z87.891 Personal history of nicotine dependence; Z91.81 History of falling; Z95.1 Presence of aortocoronary bypass graft; Z95.2 Presence of prosthetic heart valve; Z20.822 Contact with and (suspected) exposure to COVID-19; Z79.899 Other long term (current) drug therapy; Z88.0 Allergy status to penicillin; Z88.8 Allergy status to other drugs, medicaments and biological substances; W18.39XA Other fall on same level, initial encounter; Y93.89 Activity, other specified; Y92.89 Other specified places as the place of occurrence of the external cause; Y99.8 Other external cause status; Z88.7 Allergy status to serum and vaccine
CPT/HCPCS: 36415; 70450; 71045; 72125; 72141; 72192; 73502; 80053; 82962; 85025; 93005; U0003; U0005; 97110-GP; 97116-GP; 97530-GO; 97530-GP; 97535-GO; 99285-25; G0378

== ENCOUNTER → 2021-07-08 | Outpatient (CLI) | payer MEDICARE, OTHER ==
[~2021-07-08] MED LIST changes: +CLIN-94 PO; -CLIN300C9 PO; +PERFLUTREN PROTEIN-A MICROSPHR 0.22 MG/ML 3 ML VIAL. IV ONE; +REGADENOSON 0.4 MG/5 ML DISP.SYRIN. IV ONE
--- NOTE | 2021-07-08 13:47 | CARD ---
MR#: [id number] Date of Study: 07/08/2021 Ordering Physician: JAJA AVILEZ, Referring Physician: JAJA AVILEZ, Tech: Andrew Starks [facility] APPROVED REPORT EXAM: Two-dimensional and M-mode echocardiogram with Doppler and color Doppler. Other Information Quality : FairHR: 53bpm Rhythm : NSRTechnically limited study due to body habitus and smoking. INDICATION Cardiac Disease: CAD Echo Enhancing Agent Indication: Endocardial border delineation Agent/Amount Used: Optison 2mL RISK FACTORS Hypertension Obesity Hyperlipidemia Diabetes 2D DIMENSIONS Left Atrium(2D)4.1 (1.6-4.0cm)IVSd1.1 (0.7-1.1cm) Aortic Root(2D)3.2 (2.0-3.7cm)LVDd5.3 (3.9-5.9cm) LVOT Diameter2.0 (1.8-2.4cm)PWd1.1 (0.7-1.1cm) LA Gaxvzf20 (18-58mL)LVDs3.0 (2.5-4.0cm) FS (%) 42.8 %SV100.8 ml LVEF(%)73.5 (>50%) Aortic Valve AoV Peak Etienne.209.0cm/sAoV VTI52.7cm AO Peak GR.17.5mmHgLVOT Peak Etienne.85.6cm/s LVOT VTI 21.25cmAO Mean GR.10mmHg CHARLEY (VMAX)0.64sx5JTN (VTI)1.27cm2 Mitral Valve MV E Dqfungiu878.1cm/sMV DECEL SNZV213ct MV A Vyzbwbiv891.6cm/sMV DOD58jb E/A Ratio1.2MVA (PHT)4.48cm2 TDI E/Lateral E'16.4E/Medial E'17.3 Pulmonary Valve PV Peak Ygfeaset730.9cm/sPV Peak Grad.6mmHg Tricuspid Valve TR P. Muabdmnr179ut/sTR Peak Gr.28mmHg Pulmonary Vein S1 Kuplxyna73.3cm/sD2 Mjbccczq20.3cm/s LEFT VENTRICLE The left ventricle is normal size. There is normal left ventricular wall thickness. The left ventricu lar systolic function is normal and the ejection fraction is within normal range. EF 55% Septal motio n suggestive of prior sternotomy. . There is normal LV segmental wall motion. Transmitral Doppler hunter w pattern is Grade II-pseudonormal filling dynamics. No left ventricle thrombus noted on this study. There is no ventricular septal defect visualized. There is no left ventricular aneurysm. There is no mass noted in the left ventricle. RIGHT VENTRICLE The right ventricle is normal size. There is normal right ventricular wall thickness. The right ventr icular systolic function is normal. ATRIA The left atrium is mildly dilated. The right atrium size is normal. The interatrial septum is intact with no evidence for an atrial septal defect or patent foramen ovale as noted on 2-D or Doppler imagi ng. AORTIC VALVE Doppler and Color Flow revealed trace aortic regurgitation. The prosthetic aortic valve appears well seated. Not well visualized. MITRAL VALVE The mitral valve is normal in structure and function. There is no evidence of mitral valve prolapse. There is no mitral valve stenosis. Doppler and Color Flow revealed no mitral valve regurgitation note d. TRICUSPID VALVE The tricuspid valve is normal in structure and function. Doppler and Color Flow revealed trace tricus pid regurgitation. The PA pressure was estimated at 33 mmHg. There is no tricuspid valve prolapse or vegetation. There is no tricuspid valve stenosis. PULMONIC VALVE The pulmonic valve is not well seen. Doppler and Color Flow revealed no pulmonic valvular regurgitati on. There is no pulmonic valvular stenosis. GREAT VESSELS The aortic root is normal in size. The ascending aorta is normal in size. The IVC is normal in size a nd collapses >50% with inspiration. PERICARDIAL EFFUSION There is no pleural effusion. There is no evidence of significant pericardial effusion. Critical Notification Critical Value: No <Conclusion> The left ventricular systolic function is normal and the ejection fraction is within normal range. EF 55% Septal motion suggestive of prior sternotomy. . There is normal LV segmental wall motion. The prosthetic aortic valve appears well seated. Not well visualized. Doppler and Color Flow revealed trace tricuspid regurgitation. The PA pressure was estimated at 33 mm Hg. Signed by : Jaja Avilez, Electronically Approved : 07/08/2021 13:46:23
--- NOTE | 2021-07-09 08:46 | RAD ---
MR#: [id number] Date of Study: 07/08/2021 Ordering Physician: JAJA AVILEZ, Referring Physician: JOSE DE JESUS REID Tech: SIVAKUMAR Manning, ARRT (R) (N) APPROVED REPORT Test Type: Pharmacological Stress Nurse/Tech: Lila Soto RN Test Indications: CAD Cardiac History: CABG 2015, HTN, DM Medications: See Electronic Medical Record Medical History: See Electronic Medical Record Resting ECG: SR Resting Heart Rate: 72 bpm Resting Blood Pressure: 148/66mmHg Pretest Chest Pain: None Nurse/Tech Notes Lungs CTA, S1S2 Consent: The procedure was explained to the patient in lay terms. Informed consent was witnessed. Quinten eout was entered into isango!. History and Stress Test performed by CÉSAR Doss [employer]. Details Pharmacologic stress testing was performed using 0.4mg per 5ml of regadenoson given intravenously ove r 7-10 seconds. Stress Symptoms No chest pain or symptoms. POST EXERCISE Reason for Termination: Infusion complete Max HR: 106 bpm Max Blood Pressure: 159/65mmHg Blood Pressure response to exercise: Normal blood pressure response during stress. Heart Rate response to exercise: normal response Chest Pain: No. Arrhythmia: Yes. PVC ST Change: No. INTERPRETATION Stress EKG Conclusion: Baseline EKG showed sinus rhythm. No ischemic changes at peak stress. Few PV C's without any significant arrhythmias. Imaging Protocol IMAGE PROTOCOL: Rest Tc-99m/stress Tc-99m 1 day Rest: Stress: Viability: Radiopharm.Tc99m ZeuulseaoLp03e Sestamibi Clhl68mMc 32mCi Img Date 07/08/2021 07/08/2021 Inj-Img Zoat31vhx. 60min. Rest Admin Site:IV - Left ForearmAdministrator:CÉSAR Doss Stress Admin Site: IV - Left ForearmAdministrator: Osmani Centeno, RT (R)(N) STRESS DATA End Diast. Vol.86.0mlLVEDV index BSA41.0ml End Syst. Vol.64.0mlLVESV index BSA31.0ml Myocardial Efjr935.0gEject. Seslacry61.0% Stress Scores Regional WT3.00Summed WT51.00 Regional WM2.00Summed WM40.00 LV Perfusion Scintigraphic images did not show any significant fixed or reversible defects Wall Motion Severe left ventricular systolic dysfunction with ejection fraction calculated at 22% LV Perf. Quant 17 Seg. SSS2.00 17 Seg. SRS4.00 17 Seg. SDS0.00 Stress Defect Extent (% LAD)0.00Rest Defect Extent (% LAD)13.10Rev. Defect Extent (% LAD)0.00 Stress Defect Extent (% LCX) 7.50Rest Defect Extent (% LCX)22.50Rev. Defect Extent (% LCX)7.50 Stress Defect Extent (% RCA)0.00Rest Defect Extent (% RCA)0.00Rev. Defect Extent (% RCA)0.00 Stress Defect Extent (% SHOSHANA)1.30Rest Defect Extent (% SHOSHANA)12.20Rev. Defect Extent (% SHOSHANA)1.30 Conclusion 1. Regadenoson cardioisotope stress test did not show any evidence of ischemia or infarct. 2. Severe left ventricular systolic dysfunction with ejection fraction calculated at 22% 3. Intermediate risk for cardiac events based on diminished LV function. Signed by : Roland Thornton, Electronically Approved : 07/09/2021 08:45:59
== END ==
LOC: NM 08:40
PROVIDERS: ATTEND Internal Medicine Cardiovascular Disease
DX: I25.10 Atherosclerotic heart disease of native coronary artery without angina pectoris (principal); I51.9 Heart disease, unspecified; Z95.2 Presence of prosthetic heart valve
CPT/HCPCS: 78452; 93017; A9500; C8929; J2785; Q9956